=== PATIENT | female | born 1950 | race Caucasian/White ===

== ENCOUNTER 2020-12-12 08:08 | Emergency (ER) | payer OTHER ==
--- OUTSIDE RECORDS SUMMARY | 2020-12-12 08:09 | XMS REPORT | Continuity of Care Document ---
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 Social History Smoking Status Start Date Stop Date Source Never Smoker [place] [facility] Medications Ordered Filled Start Stop Current Ordering Indication Dosage Frequency Signature Comments Components Source Medication Medication Date Date Medication? Clinician (SIG) Name Name azithromyci azithromyci No azithromyc [place] n 250 mg n 250 mg in 250 mg da tablet tablet tablet [facility] citalopram citalopram No citalopram [place] 40 mg 40 mg 40 mg da tablet tablet tablet [facility] clonazepam clonazepam No clonazepam [place] 0.5 mg 0.5 mg 0.5 mg da tablet Take tablet Take tablet [facility] 1 tablet 1 tablet Take 1 al twice a day twice a day tablet Health by oral by oral twice a Outrea c route. route. day by h oral Program route. fluticasone fluticasone No fluticason [place] propionate propionate e da 50 50 propionate [facility] mcg/actuati mcg/actuati 50 a l on nasal on nasal mcg/actuat H ealth spray,suspe spray,suspe ion nasal Outreac nsion nsion spray,susp h ension Program gabapentin gabapentin No gabapentin [place] 100 mg 100 mg 100 mg da capsule capsule capsule [facility] gabapentin gabapentin No gabapentin [place] 300 mg 300 mg 300 mg da capsule capsule capsule [facility] levofloxaci levofloxaci No levofloxac [place] n 500 mg n 500 mg in 500 mg da tablet tablet tablet [facility] lisinopril lisinopril No lisinopril [place] 20 mg 20 mg 20 mg da tablet tablet tablet [facility] lisinopril lisinopril No lisinopril [place] 20 20 20 da mg-hydrochl mg-hydrochl mg-hydroch [facility] orothiazide orothiazide lorothiazi al 12.5 mg 12.5 mg de 12.5 mg Hea lth tablet tablet tablet Outreac h Program lisinopril lisinopril No lisinopril [place] 30 mg 30 mg 30 mg da tablet tablet tablet [facility] mirtazapine mirtazapine No mirtazapin [place] 15 mg 15 mg e 15 mg da tablet TAKE tablet TAKE tablet [facility] 1 TABLET BY 1 TABLET BY TAKE 1 al MOUTH MOUTH TABLET BY [facility] EVERYDAY AT EVERYDAY AT MOUTH Outreac BEDTIME BEDTIME EVERYDAY h AT BEDTIME Program neomycin-po neomycin-po No neomycin-p [place] lymyxin-hyd lymyxin-hyd olymyxin-h da rocort 3.5 rocort 3.5 ydrocort [facility] mg/mL-10,00 mg/mL-10,00 3.5 a l 0 unit/mL-1 0 unit/mL-1 mg/mL-10,0 Health % ear % ear 00 Outreac solution solution unit/mL-1 h % ear Program solution omeprazole omeprazole No omeprazole [place] 40 mg 40 mg 40 mg da capsule,del capsule,del capsule,de [facility] ayed ayed layed al release release release Health Outreac h Program ondansetron ondansetron No ondansetro [place] HCl 4 mg HCl 4 mg n HCl 4 mg d a tablet tablet tablet [facility] oseltamivir oseltamivir No oseltamivi [place] 75 mg 75 mg r 75 mg da capsule capsule capsule [facility] venlafaxine venlafaxine No venlafaxin [place] 100 mg 100 mg e 100 mg da tablet TAKE tablet TAKE tablet [facility] 1 TABLET BY 1 TABLET BY TAKE 1 al MOUTH TWICE MOUTH TWICE TABLET BY Health A DAY WITH A DAY WITH MOUTH Ou treac FOOD FOOD TWICE A h DAY WITH Program FOOD venlafaxine venlafaxine No venlafaxin [place] ER 75 mg ER 75 mg e ER 75 mg d a capsule,ext capsule,ext capsule,ex [facility] ended ended tended al release 24 release 24 release 24 Health hr hr hr Outreac h Program amoxicillin amoxicillin No amoxicilli [place] [phone] n 875 da mg-potassiu mg-potassiu mg-potassi [facility] m m um al clavulanate clavulanate clavulanat Health 125 mg 125 mg e 125 mg Outreac tablet tablet tablet h Program ampicillin ampicillin No ampicillin [place] 500 mg 500 mg 500 mg da capsule capsule capsule [facility] Procedures This patient has no known procedures. Encounters Start End Encounter Admission Attending Care Care Encounter Source Date/Time Date/Time Type Type Clinicians Facility Department ID 2019-04-30 2019-04-30 [facility] - [id number] [facility] [place] 00:00:00 00:00:00 Jakilo Hart MD: [facility] [address] [facility] [address], Health [facility] Program [id number] , Ph. [phone] Results This patient has no known results.
[2020-12-12] MEDS ORDERED: AMLODIPINE 10 MG TAB ONE ×2 (09:06→12:17)
[2020-12-12] MEDS ORDERED: ASPIRIN EC 81 MG TAB PO ONE (09:06)
[2020-12-12] MEDS ORDERED: METOPROLOL TAR 50 MG TAB ONE (09:21)
[2020-12-12 09:38] LABS: Absolute Lymphocytes (CBC) 1.7 K/uL (0.7-4.9); Basophils % 1.3 % (0-1.3); Hematocrit 38.7 % (36.0-45.0); Lymphocytes % 30.9 % (15.3-44.8); Protime INR 1.04; RBC Red Blood Cell Count 4.51 M/uL (3.86-4.86)
[2020-12-12 10:33] LABS: ALT/SGPT 31 U/L (12-78); AST/SGOT 19 U/L (15-37); Albumin 3.6 g/dL (3.4-5.0); Alkaline Phosphatase 74 U/L (45-117); BUN Blood Urea Nitrogen 16 mg/dL (7-18); Bicarbonate 26 mmol/L (21-32); Bilirubin Direct < 0.1 mg/dL (0-0.2); Bilirubin Total 0.4 mg/dL (0.2-1.0); Glucose Level 99 mg/dL (74-106); Lipase 124 U/L (73-393); Magnesium 2.6 mg/dL (1.8-2.4); NT PRO-BNP 72 pg/mL (<125); Potassium 4.1 mmol/L (3.5-5.1); Protein, Total 7.7 g/dL (6.4-8.2); Sodium Level 143 mmol/L (136-145); Troponin (Emerg Dept Use Only) < 0.02 ng/mL (0.0-0.045)
--- NOTE | 2020-12-12 11:00 | ER ---
Nurse's Notes [facility] Name: Kelsi Ballard Age: 70 yrs Sex: Female : 1950 Arrival Date: 12/12/2020 Time: 08:11 Bed 16 Private MD: Diagnosis: Essential (primary) hypertension;Chest pain, unspecified Presentation: 12/12 08:32 Chief complaint: Patient states: HTN. pt reports that her BP has been elevated the last tr6 2 weeks. pt reports headache in the back of her head. Coronavirus screen: Client denies travel out of the [place] in the last 14 days. Ebola Screen: Patient negative for fever greater than or equal to 101.5 degrees Fahrenheit, and additional compatible Ebola Virus Disease symptoms Patient denies exposure to infectious person. Patient denies travel to an Ebola-affected area in the 21 days before illness onset. Initial Sepsis Screen: Does the patient meet any 2 criteria? No. Patient's initial sepsis screen is negative. Does the patient have a suspected source of infection? No. Patient's initial sepsis screen is negative. Risk Assessment: Do you want to hurt yourself or someone else? Patient reports no desire to harm self or others. Onset of symptoms was November 28, 2020. 08:32 Method Of Arrival: Ambulatory tr6 08:32 Acuity: YARA 3 tr6 Triage Assessment: 08:34 General: Appears in no apparent distress. Behavior is calm, cooperative, appropriate tr6 for age. Pain: Complains of pain in c/o dull headache on back of her head. pt reports that she usually has a headache. Historical: - Allergies: 08:34 Hydrocodone-Acetaminophen; tr6 08:34 tramadol; tr6 - Home Meds: 08:34 lisinopril Oral once daily [Active]; aspirin 81 mg Oral chew once daily [Active]; tr6 - Immunization history:: Adult Immunizations up to date. - Social history:: Smoking status: unknown. - Family history:: not pertinent. Screenin:34 Abuse screen: Denies threats or abuse. Denies injuries from another. Nutritional tr6 screening: No deficits noted. Tuberculosis screening: No symptoms or risk factors identified. Fall Risk None identified. Assessment: 11:21 Reassessment: see triage assessment. tr6 12:00 Reassessment: No changes from previously documented assessment. pt educated on new tr6 medication. pt friend at bedside. pt updated on POC and verbalized understanding. 12:25 Reassessment: OOB to bathroom. tr6 Vital Signs: 08:31 BP 166 / 101; Pulse 82; Resp 18; Pulse Ox 100% ; tr6 08:39 BP 166 / 96; Pulse 91; Resp 18; Pulse Ox 95% ; tr6 11:21 BP 179 / 90; Pulse 64; Resp 18; Pulse Ox 100% ; tr6 12:56 BP 160 / 103; Pulse 82; Resp 18; Pulse Ox 100% ; tr6 ED Course: 08:11 Patient arrived in ED. mr 08:17 Ganesh Bill MD is Attending Physician. claudine 08:33 Triage completed. tr6 08:35 Arm band placed on right wrist. tr6 08:35 Patient has correct armband on for positive identification. Bed in low position. Call tr6 light in reach. Side rails up X 1. 08:35 No provider procedures requiring assistance completed. tr6 10:07 XRAY Chest (1 view) In Process Unspecified. EDMS 10:59 Jean-Claude Lucas MD is Referral Physician. claudine 11:55 Troponin (emerg Dept Use Only): 1130 am Sent. tr6 12:58 IV discontinued, intact, bleeding controlled, No redness/swelling at site. Pressure tr6 dressing applied. Administered Medications: 08:58 Not Given (Duplicate Order): Norvasc (amlodipine) 10 mg PO once claudine 09:12 Drug: Aspirin 162 mg Route: PO; tr6 11:55 Follow up: Response: No adverse reaction tr6 09:12 Drug: Lopressor (metoprolol TARTRATE) 50 mg Route: PO; tr6 11:54 Follow up: Response: No adverse reaction tr6 12:00 Drug: Norvasc (amlodipine) 10 mg Route: PO; tr6 12:25 Follow up: Response: No adverse reaction tr6 12:41 CANCELLED (Duplicate Order): Ativan (LORazepam) 1 mg PO once claudine 12:53 Drug: Ativan (LORazepam) 1 mg Route: IVP; Site: right antecubital; tr6 12:57 Follow up: Response: No adverse reaction; Anxiety decreased tr6 Outcome: 10:59 Discharge ordered by . claudine 12:57 Discharged to home ambulatory, with friend. tr6 12:57 Condition: good 12:57 Discharge instructions given to patient. 13:28 Patient left the ED. tr6 Signatures: Dispatcher [employer] Ganesh Lucio MD MD cha Rivera, Mary mr Ramnanan, Tiffany, RN RN tr6
--- NOTE | 2020-12-12 11:00 | EDPHYS ---
Physician Documentation [facility] Name: Kelsi Ballard Age: 70 yrs Sex: Female : 1950 Arrival Date: 12/12/2020 Time: 08:11 Bed 16 Private MD: JENNIFER Physician Ganesh Bill HPI: 12/12 09:06 This 70 yrs old Female presents to ER via Ambulatory with complaints of High claudine Blood Pressure. 09:06 The patient has elevated blood pressure and discovered this at home. Onset: The claudine symptoms/episode began/occurred 14 day(s) ago. Modifying factors: The symptoms are aggravated by activity, The symptoms are alleviated by remaining still. Associated signs and symptoms: Pertinent positives: chest pain, headache. Severity of symptoms: At its worst the blood pressure was moderate, in the emergency department the blood pressure is improved, mildly. The patient has experienced similar episodes in the past, multiple times. Historical: - Allergies: 08:34 Hydrocodone-Acetaminophen; tr6 08:34 tramadol; tr6 - Home Meds: 08:34 lisinopril Oral once daily [Active]; aspirin 81 mg Oral chew once daily [Active]; tr6 - Immunization history:: Adult Immunizations up to date. - Social history:: Smoking status: unknown. - Family history:: not pertinent. ROS: 09:06 Constitutional: Negative for fever, chills, and weight loss, Eyes: Negative for injury, claudine pain, redness, and discharge, ENT: Negative for injury, pain, and discharge, Neck: Negative for injury, pain, and swelling, Respiratory: Negative for shortness of breath, cough, wheezing, and pleuritic chest pain, Abdomen/GI: Negative for abdominal pain, nausea, vomiting, diarrhea, and constipation, Back: Negative for injury and pain, : Negative for injury, bleeding, discharge, and swelling, MS/Extremity: Negative for injury and deformity, Skin: Negative for injury, rash, and discoloration, Psych: Negative for depression, anxiety, suicide ideation, homicidal ideation, and hallucinations, Allergy/Immunology: Negative for hives, rash, and allergies, Endocrine: Negative for neck swelling, polydipsia, polyuria, polyphagia, and marked weight changes, Hematologic/Lymphatic: Negative for swollen nodes, abnormal bleeding, and unusual bruising. 09:06 Cardiovascular: Positive for chest pain. 09: Respiratory: Negative for cough, shortness of breath. 09: MS/extremity: Negative for acute changes. Exam: : Constitutional: This is a well developed, well nourished patient who is awake, alert, claudine and in no acute distress. Head/Face: Normocephalic, atraumatic. Eyes: Pupils equal round and reactive to light, extra-ocular motions intact. Lids and lashes normal. Conjunctiva and sclera are non-icteric and not injected. Cornea within normal limits. Periorbital areas with no swelling, redness, or edema. ENT: Nares patent. No nasal discharge, no septal abnormalities noted. Tympanic membranes are normal and external auditory canals are clear. Oropharynx with no redness, swelling, or masses, exudates, or evidence of obstruction, uvula midline. Mucous membranes moist. Neck: Trachea midline, no thyromegaly or masses palpated, and no cervical lymphadenopathy. Supple, full range of motion without nuchal rigidity, or vertebral point tenderness. No Meningismus. Chest/axilla: Normal chest wall appearance and motion. Nontender with no deformity. No lesions are appreciated. Cardiovascular: Regular rate and rhythm with a normal S1 and S2. No gallops, murmurs, or rubs. Normal PMI, no JVD. No pulse deficits. Respiratory: Lungs have equal breath sounds bilaterally, clear to auscultation and percussion. No rales, rhonchi or wheezes noted. No increased work of breathing, no retractions or nasal flaring. Abdomen/GI: Soft, non-tender, with normal bowel sounds. No distension or tympany. No guarding or rebound. No evidence of tenderness throughout. Back: No spinal tenderness. No costovertebral tenderness. Full range of motion. Female : Normal external genitalia. Skin: Warm, dry with normal turgor. Normal color with no rashes, no lesions, and no evidence of cellulitis. MS/ Extremity: Pulses equal, no cyanosis. Neurovascular intact. Full, normal range of motion. Neuro: Awake and alert, GCS 15, oriented to person, place, time, and situation. Cranial nerves II-XII grossly intact. Motor strength 5/5 in all extremities. Sensory grossly intact. Cerebellar exam normal. Normal gait. Psych: Awake, alert, with orientation to person, place and time. Behavior, mood, and affect are within normal limits. 09:08 ECG was reviewed by the Attending Physician. [facility] Vital Signs: 08:31 BP 166 / 101; Pulse 82; Resp 18; Pulse Ox 100% ; tr6 08:39 BP 166 / 96; Pulse 91; Resp 18; Pulse Ox 95% ; tr6 11:21 BP 179 / 90; Pulse 64; Resp 18; Pulse Ox 100% ; tr6 12:56 BP 160 / 103; Pulse 82; Resp 18; Pulse Ox 100% ; tr6 MDM: 08:17 Patient medically screened. [facility] 09:09 Differential diagnosis: hypertensive crisis. Data reviewed: vital signs, nurses notes, [facility] lab test result(s), EKG, radiologic studies. Data interpreted: prescription clerk: rate is 91 beats/min, rhythm is regular, Pulse oximetry: on room air is 95 %. Test interpretation: by ED physician or midlevel provider: ECG, plain radiologic studies. Counseling: I had a detailed discussion with the patient and/or guardian regarding: the historical points, exam findings, and any diagnostic results supporting the discharge/admit diagnosis, lab results, radiology results, the need for outpatient follow up, for definitive care, a prescription eyeglass maker. 12/12 08:43 Order name: Basic Metabolic Panel [facility] 12/12 08:43 Order name: CBC with Diff [facility] 12/12 08:43 Order name: LFT's; Complete Time: 10:55 [facility] 12/12 08:43 Order name: Magnesium; Complete Time: 10:55 [facility] 12/12 08:43 Order name: NT PRO-BNP; Complete Time: 10:55 [facility] 12/12 08:43 Order name: PT-INR; Complete Time: 10:03 [facility] 12/12 08:43 Order name: Troponin (emerg Dept Use Only); Complete Time: 10:55 [facility] 12/12 08:43 Order name: XRAY Chest (1 view); Complete Time: 11:25 [facility] 12/12 08:43 Order name: Lipase; Complete Time: 10:55 [facility] 12/12 08:43 Order name: Basic Metabolic Panel; Complete Time: 10:55 [facility] 12/12 08:43 Order name: CBC with Automated Diff; Complete Time: 10:03 [facility] 12/12 10:57 Order name: Troponin (emerg Dept Use Only): 1130 am [facility] 12/12 10:57 Order name: Troponin (Emerg Dept Use Only); Complete Time: 12:40 [facility] 12/12 08:43 Order name: EKG; Complete Time: 08:44 [facility] 12/12 08:43 Order name: Cardiac monitoring; Complete Time: 09:11 [facility] 12/12 08:43 Order name: EKG - Nurse/Tech; Complete Time: 09:11 [facility] 12/12 08:43 Order name: IV Saline Lock; Complete Time: 09: [facility] 12/12 08:43 Order name: Labs collected and sent; Complete Time: 09: [facility] 12/12 08:43 Order name: O2 Per Protocol; Complete Time: 09: [facility] 12/12 08:43 Order name: O2 Sat Monitoring; Complete Time: :11 [facility] EC:08 Rate is 82 beats/min. Rhythm is regular. QRS [place] is Normal. [place] interval is normal. QRS claudine interval is normal. QT interval is normal. No Q waves. T waves are Normal. No ST changes noted. Clinical impression: NSR w/ Non-specific ST/T Changes and No evidence of ischemia. Interpreted by me. Reviewed by me. Administered Medications: 08:58 Not Given (Duplicate Order): Norvasc (amlodipine) 10 mg PO once [facility] 09:12 Drug: Aspirin 162 mg Route: PO; tr6 11:55 Follow up: Response: No adverse reaction tr6 09:12 Drug: Lopressor (metoprolol TARTRATE) 50 mg Route: PO; tr6 11:54 Follow up: Response: No adverse reaction tr6 12:00 Drug: Norvasc (amlodipine) 10 mg Route: PO; tr6 12:25 Follow up: Response: No adverse reaction tr6 12:41 CANCELLED (Duplicate Order): Ativan (LORazepam) 1 mg PO once [facility] 12:53 Drug: Ativan (LORazepam) 1 mg Route: IVP; Site: right antecubital; tr6 12:57 Follow up: Response: No adverse reaction; Anxiety decreased tr6 Disposition: 12/12/20 10:59 Discharged to Home. Impression: Essential (primary) hypertension, Chest pain, unspecified. - Condition is Stable. - Discharge Instructions: Hypertension, Hypertension, [id number], Aspirin and Your Heart, Managing Your Hypertension. - Prescriptions for Lisinopril 20 mg Oral Tablet - take 1 tablet by ORAL route every 12 hours; 30 tablet. Norvasc 5 mg Oral Tablet - take 1 tablet by ORAL route once daily; 20 tablet. Toprol XL 25 mg Oral Tablet - take 1 tablet by ORAL route once daily; 20 tablet. - Medication Reconciliation Form, Thank You Letter, Antibiotic Education, Prescription Opioid Use, Work release form, Family Work Release form. - Follow up: Private Physician; When: 2 - 3 days; Reason: Recheck today's complaints, Continuance of care, Re-evaluation by your physician. Follow up: Jean-Claude Lucas; When: 2 - 3 days; Reason: Recheck today's complaints, Continuance of care, Re-evaluation by your physician. - Problem is new. - Symptoms have improved. Signatures: Dispatcher [employer] EDGanesh Lindquist MD MD cha Ramnanan, Tiffany RN RN tr6 Corrections: (The following items were deleted from the chart) 12:41 12:41 Ativan (LORazepam) 1 mg PO once ordered. claudine chow 13:28 10:59 12/12/2020 10:59 Discharged to Home. Impression: Essential (primary) tr6 hypertension; Chest pain, unspecified. Condition is Stable. Discharge Instructions: Hypertension, Hypertension, [id number], Aspirin and Your Heart, Managing Your Hypertension. Prescriptions for Toprol XL 50 mg Oral Tablet - take 1 tablet by ORAL route once daily; 20 tablet, Lisinopril 20 mg Oral Tablet - take 1 tablet by ORAL route every 12 hours; 30 tablet. and Forms are Medication Reconciliation Form, Thank You Letter, Antibiotic Education, Prescription Opioid Use. Follow up: Private Physician; When: 2 - 3 days; Reason: Recheck today's complaints, Continuance of care, Re-evaluation by your physician. Follow up: Jean-Claude Lucas; When: 2 - 3 days; Reason: Recheck today's complaints, Continuance of care, Re-evaluation by your physician. Problem is new. Symptoms have improved. claudine
--- NOTE | 2020-12-12 11:09 | RAD REPORT ---
EXAM DESCRIPTION: Eran Single View12/12/2020 10:06 am CLINICAL HISTORY: Chest pain COMPARISON: 2016 FINDINGS: The lungs appear clear of acute infiltrate. The heart is mildly enlarged. Old left rib fr acture IMPRESSION: No acute abnormalities displayed
[2020-12-12] MEDS ORDERED: LORazepam 2 MG/ML VIAL ONE (13:04)
[2020-12-12 13:35] VITALS: O2SAT 100
[2020-12-12 13:36] VITALS: BP 160/103
--- NOTE | 2020-12-13 10:39 | EKG ---
Test Date: 2020-12-12 Test Time: 08:57:54 Marketing Communications Leader: JESSICA MEASUREMENT RESULTS: Intervals: Rate: 82 AL: 138 QRSD: 76 QT: 398 QTc: 464 [place]: P: 50 AL: 138 QRS: -4 T: 31 INTERPRETIVE STATEMENTS: Normal sinus rhythm Inferior infarct, age undetermined Abnormal ECG Compared to ECG 12/19/2016 11:53:21 T-wave abnormality no longer present Possible ischemia no longer present Myocardial infarct finding still present Electronically Signed On 12-13-20 10:36:52 CDT by Jean-Claude Lucas
== END 2020-12-12 13:28 | disposition home or self-care (01) ==
LOC: ER 08:08
DX: I10 Essential (primary) hypertension (principal); Z79.82 Long term (current) use of aspirin; Z88.5 Allergy status to narcotic agent; Z88.6 Allergy status to analgesic agent
CPT/HCPCS: 36415; 71045; 80048; 80076; 83690; 83735; 83880; 84484; 85025; 85610; 93005; 96374; 99284

== ENCOUNTER 2022-01-24 14:08 | Observation (INO) | payer OTHER ==
--- OUTSIDE RECORDS SUMMARY | 2022-01-24 14:10 | XMS REPORT | Continuity of Care Document ---
:1950 Author Organization [facility] t Address [address] [place] [address] Care Team Providers Name Role Phone JOHN Attending Clinician Unavailable JOHN Admitting Clinician Unavailable Payers Payer Name Policy Type Policy Number Effective Date Expiration Date Jasper DAIGLE (MEDICARE [id number] REPLACEMENT/ADVANTAGE - PPO) Problems Condition Condition Condition Status Onset Resolution [...] Start Date Stop Date Source Never Smoker [facility] Outreach Program Medications Ordered Filled Start Stop Current Ordering Indication Dosage Frequency Signature Comments Components Source Medication Medication Date Date Medication? Clinician (SIG) Name Name amoxicillin amoxicillin No amoxicilli [place] [phone] [id number] 875 da mg-potassiu mg-potassiu mg-potassi [facility] al clavulanate clavulanate clavulanat Health 125 mg 125 mg e 125 mg Outreac tablet tablet tablet h Program ampicillin ampicillin No ampicillin [place] 500 mg 500 mg 500 mg da capsule capsule capsule [facility] azithromyci azithromyci No azithromyc [place] n 250 mg n 250 mg in 250 mg da tablet tablet tablet [facility] citalopram citalopram No citalopram [place] 40 mg 40 mg 40 mg da tablet tablet tablet [facility] Outreac h Program clonazepam clonazepam No clonazepam [...] mg da capsule capsule capsule [facility] Outreac h Program gabapentin gabapentin No gabapentin [place] 300 mg 300 mg 300 mg da capsule capsule capsule [facility] Outreac h Program levofloxaci levofloxaci No levofloxac [place] n 500 mg n 500 mg in 500 mg da tablet tablet tablet [facility] Outreac h Program lisinopril lisinopril No lisinopril [place] 20 mg 20 mg 20 mg da tablet tablet tablet [facility] Outreac h Program lisinopril lisinopril No lisinopril [place] 20 20 20 da mg-hydrochl mg-hydrochl mg-hydroch [facility] orothiazide orothiazide lorothiazi al 12.5 mg 12.5 mg de 12.5 mg Hea lth tablet tablet tablet Outreac h Program lisinopril lisinopril No lisinopril [place] 30 mg 30 mg 30 mg da tablet tablet tablet [facility] Outreac h Program mirtazapine mirtazapine No mirtazapin [place] 15 mg 15 mg e 15 mg da tablet TAKE tablet TAKE tablet [facility] 1 TABLET BY 1 TABLET BY TAKE 1 al MOUTH MOUTH TABLET BY [facility] EVERYDAY AT EVERYDAY AT MOUTH [facility] BEDTIME [...] Health hr hr hr Outreac h Program Procedures This patient has no known procedures. Encounters Start End Encounter Admission Attending Care Care Encounter Source Date/Time Date/Time Type Type Clinicians Facility Department ID 2021-11-26 2021-11-26 Out[place] [id number] [place] 10:48:00 10:48:00 _[facility]UAN 0421 [facility] 2019-12-12 2019-12-12 Outpatient [place] [id number] [place] 12:49:00 12:49:00 _JO[facility]UAN [id number] [facility] 2019-11-07 2019-11-07 Outpatient [place] [id number] [place] 01:17:00 01:17:00 _[facility]UAN [facility]01 [facility] 2019-10-03 2019-10-03 Outpatient [facility] 803 [place] 06:08:00 06:08:00 _JOSE JUAN [facility] 2019-04-30 2019-04-30 Amol [facility] [place] - [id number] M [place] 00:00:00 00:00:00 Remy Hart MD: [facility] [address] [facility] [address], [address], [facility] [id number] , Ph. [phone] Results This patient has no known results.
[2022-01-24] MEDS ORDERED: MORPHINE 4 MG/ML SYR ONE (14:24)
[2022-01-24] MEDS ORDERED: ONDANSETRON 4 MG/2 ML VIAL ONE ×2 (14:25→18:39)
--- NOTE | 2022-01-24 14:53 | RAD REPORT ---
EXAM DESCRIPTION: RAD - Humerus Right - 01/24/2022 2:40 pm CLINICAL HISTORY: PAIN COMPARISON: No comparisons FINDINGS/IMPRESSION: Displaced multipart fracture of the right proximal humerus. No dislocation. The remainder of the humerus and elbow are grossly unremarkable.
--- NOTE | 2022-01-24 14:53 | RAD REPORT ---
EXAM DESCRIPTION: RAD - Shoulder Right 2 View - 01/24/2022 2:40 pm CLINICAL HISTORY: PAIN COMPARISON: No comparisons FINDINGS/IMPRESSION: Multipart fracture of the right proximal humerus involving greater tuberosity, surgical neck, and likely the lesser tuberosity. No dislocation.
[2022-01-24] MEDS ORDERED: HYDROMORPHONE HCL 1 MG/ML INJ ONE ×3 (15:10→18:39)
--- NOTE | 2022-01-24 18:16 | EDPHYS ---
Physician Documentation [facility] Name: Kelsi Ballard Age: 71 yrs Sex: Female : 1950 Arrival Date: 01/24/2022 Time: 14:10 Bed 2 Private MD: ED Physician Conner Schwartz HPI: 01/24 15:04 This 71 yrs old Female presents to ER via EMS with complaints of Shoulder Pain, Arm ma2 Injury - patient was walking when she tripped fell onto the left shoulder/arm and now having pain in the r arm worse in the mid shaft region.. 15:04 Onset: The symptoms/episode began/occurred suddenly, 1 hour(s) ago. Associated signs ma2 and symptoms: Pertinent negatives: diaphoresis. Severity of symptoms: At their worst the symptoms were moderate, in the emergency department the symptoms are unchanged. And tripped and fell onto her right shoulder sustained pain in right upper arm, pain is sudden severe, weakness in the hand or changes sensation,. Historical: - Allergies: 14:14 Hydrocodone-Acetaminophen; jg9 14:14 tramadol; jg9 - Home Meds: 15:11 aspirin 81 mg Oral chew once daily [Active]; citalopram 40 mg tab 1 tab once daily jg9 [Active]; clonazepam 0.5 mg Oral TbDL 1 tab 2 times per day [Active]; gabapentin 300 mg Oral cap daily [Active]; lisinopril Oral once daily [Active]; Prozac Oral [Active]; venlafaxine Oral [Active]; - PMHx: 14:14 Anxiety; Chronic pain; Hypertension; jg9 - Immunization history:: Adult Immunizations not up to date. - Social history:: Smoking status: Patient denies any tobacco usage or history of. - Family history:: not pertinent. ROS: 15:04 Constitutional: Negative for fever, chills, and weight loss. ma2 15:04 All other systems are negative. Exam: 15:04 Constitutional: This is a well developed, well nourished patient who is awake, alert, ma2 and in no acute distress. Head/Face: Normocephalic, atraumatic. Eyes: Pupils equal round and reactive to light, extra-ocular motions intact. Lids and lashes normal. Conjunctiva and sclera are non-icteric and not injected. Cornea within normal limits. Periorbital areas with no swelling, redness, or edema. ENT: Nares patent. No nasal discharge, no septal abnormalities noted. Tympanic membranes are normal and external auditory canals are clear. Oropharynx with no redness, swelling, or masses, exudates, or evidence of obstruction, uvula midline. Mucous membranes moist. Neck: Trachea midline, no thyromegaly or masses palpated, and no cervical lymphadenopathy. Supple, full range of motion without nuchal rigidity, or vertebral point tenderness. No Meningismus. Chest/axilla: Normal chest wall appearance and motion. Nontender with no deformity. No lesions are appreciated. Cardiovascular: Regular rate and rhythm with a normal S1 and S2. No gallops, murmurs, or rubs. Normal PMI, no JVD. No pulse deficits. Respiratory: Lungs have equal breath sounds bilaterally, clear to auscultation and percussion. No rales, rhonchi or wheezes noted. No increased work of breathing, no retractions or nasal flaring. Abdomen/GI: Soft, non-tender, with normal bowel sounds. No distension or tympany. No guarding or rebound. No evidence of tenderness throughout. Skin: Warm, dry with normal turgor. Normal color with no rashes, no lesions, and no evidence of cellulitis. MS/ Extremity: Numbness to palpation in the right upper arm, skin is closed no laceration or abrasion or puncture wound, cap refill is brisk and pulses intact radial and ulnar, right upper extremity is well vascularized with peripheral sensation is intact and equal, pulses equal, no cyanosis. Neurovascular intact. Full, normal range of motion. Neuro: Awake and alert, GCS 15, oriented to person, place, time, and situation. Cranial nerves II-XII grossly intact. Motor strength 5/5 in all extremities. Sensory grossly intact. Cerebellar exam normal. Normal gait. Vital Signs: 14:12 BP 145 / 88; Pulse 100; Resp 18 S; Temp 97.8(TE); Pulse Ox 98% on R/A; Weight 68.04 kg; jg9 Height 5 ft. 4 in. (162.56 cm) (R); Pain 8/10; 14:15 BP 148 / 101; Pulse 99; Resp 20 S; Pulse Ox 98% on R/A; jg9 15:00 BP 146 / 84; Pulse 92; Resp 16 S; Pulse Ox 98% ; Pain 10/10; jg9 16:30 BP 129 / 80; Pulse 100; Resp 18 S; Pulse Ox 94% on R/A; Pain 5/10; jg9 19:13 BP 147 / 83; Pulse 98; Resp 18 S; Pulse Ox 96% on 2 lpm NC; as6 19:29 Pulse Ox 98% 2 lpm ; kd3 14:12 Body Mass Index 25.75 (68.04 kg, 162.56 cm) jg9 MDM: 14:11 Patient medically screened. ma2 15:04 Differential diagnosis: humeral head fracture, glenoid fracture, DJD, tendonitis. Data ma2 reviewed: vital signs, nurses notes. Counseling: I had a detailed discussion with the patient and/or guardian regarding: the historical points, exam findings, and any diagnostic results supporting the discharge/admit diagnosis, the presence of at least one elevated blood pressure reading (>120/80) during this emergency department visit, the need for outpatient follow up. Response to treatment: the patient's symptoms have mildly improved after treatment. 16:36 ED course: Patient has multi part displaced proximal humerus fracture, closed ma2 neurovascular intact, we put the patient on sling give her morphine Zofran, pain still persist, we gave Dilaudid.. ED course: Discussed with Dr. Mauricio orthopedic, shared all images, after he reviewed all the images he advised that this is definitely nonsurgical however patient still unable to move due to pain after 2 rounds of narcotics, will admit to hospitalist with orthopedic consult further management.. 18:13 ED course: discussed with sol rosenberg . ma2 01/24 16:33 Order name: COVID-19 SARS RT PCR (Document "Date of Onset" if Symptomatic); Complete ss Time: 18:12 01/24 14:12 Order name: Shoulder Right (2 View) XRAY; Complete Time: 14:55 ma2 01/24 14:12 Order name: Humerus Right XRAY; Complete Time: 14:55 pr2 01/24 15:06 Order name: Sling; Complete Time: 15:13 ma2 Administered Medications: 14:27 Drug: morphine 4 mg Route: IVP; Infused Over: 4 mins; Site: left antecubital; jg9 15:07 Follow up: Response: No adverse reaction; Pain is unchanged, physician notified jg9 19:29 Follow up: Response: No adverse reaction; Pain is decreased kd3 14:27 Drug: Zofran (Ondansetron) 4 mg Route: IVP; Site: left antecubital; jg9 15:07 Follow up: Response: No adverse reaction jg9 19:29 Follow up: Response: No adverse reaction kd3 15:10 Drug: Dilaudid (HYDROmorphone) 1 mg Route: IVP; Site: left antecubital; jg9 16:34 Follow up: Response: No adverse reaction hernandez 19:29 Follow up: Response: No adverse reaction; Pain is decreased kd3 16:34 Drug: Dilaudid (HYDROmorphone) 1 mg Route: IVP; Site: left antecubital; hernandez 16:34 Follow up: Response: No adverse reaction hernandez 19:29 Follow up: Response: No adverse reaction; Pain is decreased kd3 18:36 Drug: Dilaudid (HYDROmorphone) 1 mg Route: IVP; Site: left antecubital; jg9 19:29 Follow up: Response: No adverse reaction; Pain is decreased kd3 18:36 Drug: Zofran (Ondansetron) 4 mg Route: IVP; Site: left antecubital; jg9 19:30 Follow up: Response: No adverse reaction; Pain is decreased kd3 Disposition Summary: 01/24/22 18:15 Hospitalization Ordered Hospitalization Status: Observation ma2 Provider: Luis Perez Condition: Stable ma2 Problem: new ma2 Symptoms: are unchanged ma2 Bed/Room Type: Standard [facility] Location: [facility](01/24/22 18:54) Room Assignment: [facility]-(01/24/22 18:54) Diagnosis - 2-part nondisplaced fracture of surgical neck of right humerus ma2 Discharge Instructions: - Discharge Summary Sheet ma2 - Humerus Fracture Treated With Immobilization, [id number] ma2 Forms: - Medication Reconciliation Form ma2 - SBAR form ma2 Prescriptions: - Diclofenac Sodium 75 mg Oral Tablet Sustained Release - take 1 tablet by ORAL route 2 times per day; 30 tablet; Refills: 0, Product ma2 Selection Permitted - Tylenol-Codeine #3 300 mg-30 mg Oral - take 1 tablet by ORAL route 2-4 times daily; 20 tablet; Refills: 0, Product ma2 Selection Permitted Signatures: Dispatcher [employer] Leila Zamora RN RN Conner Schwartz MD MD ma2 Jessica Aguila RN RN jg9 Sandra Nunez RN RN ha Doucette, Kyli RN kd3 Corrections: (The following items were deleted from the chart) 18:54 18:15 Telemetry/MedSurg (observation) pr2 18:54 18:15 ma2
--- NOTE | 2022-01-24 18:16 | ER ---
Nurse's Notes [facility] Name: Kelsi Ballard Age: 71 yrs Sex: Female : 1950 Arrival Date: 01/24/2022 Time: 14:10 Bed 2 Private MD: Diagnosis: 2-part nondisplaced fracture of surgical neck of right humerus Presentation: 01/24 14:12 Chief complaint: EMS states: Patient was walking into the garage when she tripped and jg9 fell landing on her left arm, patient had to be medicated with 37 mg of ketamine just to get patient on cart and arm in sling. Coronavirus screen: Vaccine status: Patient reports being unvaccinated. Ebola Screen: Patient negative for fever greater than or equal to 101.5 degrees Fahrenheit, and additional compatible Ebola Virus Disease symptoms Patient denies exposure to infectious person. Patient denies travel to an Ebola-affected area in the 21 days before illness onset. Initial Sepsis Screen: Does the patient meet any 2 criteria? No. Patient's initial sepsis screen is negative. Does the patient have a suspected source of infection? No. Patient's initial sepsis screen is negative. Risk Assessment: Do you want to hurt yourself or someone else? Patient reports no desire to harm self or others. Onset of symptoms was January 24, 2022. 14:12 Method Of Arrival: EMS: [facility] j9 14:12 Acuity: YARA 3 jg9 Triage Assessment: 14:00 General: Appears uncomfortable, Behavior is anxious. Pain: Complains of pain in right jg9 arm. Musculoskeletal: Reports pain in right arm. Injury Description: fall, - Loc, - thinners. Historical: - Allergies: 14:14 Hydrocodone-Acetaminophen; jg9 14:14 tramadol; jg9 - Home Meds: 15:11 aspirin 81 mg Oral chew once daily [Active]; citalopram 40 mg tab 1 tab once daily jg9 [Active]; clonazepam 0.5 mg Oral TbDL 1 tab 2 times per day [Active]; gabapentin 300 mg Oral cap daily [Active]; lisinopril Oral once daily [Active]; Prozac Oral [Active]; venlafaxine Oral [Active]; - PMHx: 14:14 Anxiety; Chronic pain; Hypertension; jg9 - Immunization history:: Adult Immunizations not up to date. - Social history:: Smoking status: Patient denies any tobacco usage or history of. - Family history:: not pertinent. Screenin:15 Abuse screen: Denies threats or abuse. Denies injuries from another. Nutritional jg9 screening: No deficits noted. Tuberculosis screening: No symptoms or risk factors identified. Fall Risk Fall in past 12 months (25 points). Assessment: 15:12 Reassessment: Patient and/or family updated on plan of care and expected duration. Pain jg9 level reassessed. Patient states feeling better. Patient states symptoms have improved. Vital Signs: 14:12 BP 145 / 88; Pulse 100; Resp 18 S; Temp 97.8(TE); Pulse Ox 98% on R/A; Weight 68.04 kg; jg9 Height 5 ft. 4 in. (162.56 cm) (R); Pain 8/10; 14:15 BP 148 / 101; Pulse 99; Resp 20 S; Pulse Ox 98% on R/A; jg9 15:00 BP 146 / 84; Pulse 92; Resp 16 S; Pulse Ox 98% ; Pain 10/10; jg9 16:30 BP 129 / 80; Pulse 100; Resp 18 S; Pulse Ox 94% on R/A; Pain 5/10; jg9 19:13 BP 147 / 83; Pulse 98; Resp 18 S; Pulse Ox 96% on 2 lpm NC; as6 19:29 Pulse Ox 98% 2 lpm ; kd3 14:12 Body Mass Index 25.75 (68.04 kg, 162.56 cm) jg9 ED Course: 14:10 Patient arrived in ED. ss 14:11 Conner Schwartz MD is Attending Physician. ma2 14:11 Jessica Aguila, BRIANDA is Primary Nurse. jg9 14:14 Triage completed. jg9 14:16 Arm band placed on left wrist. jg9 14:16 Patient has correct armband on for positive identification. Bed in low position. Call jg9 light in reach. Side rails up X 1. 14:41 Shoulder Right (2 View) XRAY In Process Unspecified. EDMS 14:41 Humerus Right XRAY In Process Unspecified. EDMS 18:15 Luis Perez is Hospitalizing Provider. ma2 19:27 No provider procedures requiring assistance completed. Patient admitted, IV remains in kd3 place. Administered Medications: 14:27 Drug: morphine 4 mg Route: IVP; Infused Over: 4 mins; Site: left antecubital; jg9 15:07 Follow up: Response: No adverse reaction; Pain is unchanged, physician notified j9 19:29 Follow up: Response: No adverse reaction; Pain is decreased kd3 14:27 Drug: Zofran (Ondansetron) 4 mg Route: IVP; Site: left antecubital; jg9 15:07 Follow up: Response: No adverse reaction jg9 19:29 Follow up: Response: No adverse reaction kd3 15:10 Drug: Dilaudid (HYDROmorphone) 1 mg Route: IVP; Site: left antecubital; jg9 16:34 Follow up: Response: No adverse reaction hernandez 19:29 Follow up: Response: No adverse reaction; Pain is decreased kd3 16:34 Drug: Dilaudid (HYDROmorphone) 1 mg Route: IVP; Site: left antecubital; hernandez 16:34 Follow up: Response: No adverse reaction hernandez 19:29 Follow up: Response: No adverse reaction; Pain is decreased kd3 18:36 Drug: Dilaudid (HYDROmorphone) 1 mg Route: IVP; Site: left antecubital; j9 19:29 Follow up: Response: No adverse reaction; Pain is decreased kd3 18:36 Drug: Zofran (Ondansetron) 4 mg Route: IVP; Site: left antecubital; jg9 19:30 Follow up: Response: No adverse reaction; Pain is decreased kd3 Medication: 14:16 VIS not applicable for this client. jg9 Outcome: 18:15 Decision to Hospitalize by Provider. ma2 19:28 Admitted to L \T\ D, accompanied by tech, room 270. kd3 19:28 Condition: stable 19:28 Discharge instructions given to patient, family. 19:31 Patient left the ED. kd3 Signatures: Dispatcher [employer] EDMS Cynthia Johansen RN RN Conner Schwartz MD MD ma2 Avery [place] RN RN as6 Carmela Jason RN RN kd3 Jessica Aguila RN RN jg9 Sandra Nunez RN RN hernandez Corrections: (The following items were deleted from the chart) 16:47 15:00 BP 146 / 84; Pulse 92bpm; Resp 16bpm; Spontaneous; Pulse Ox 98%; jg9 jg9
--- NOTE | 2022-01-24 19:14 | P.HP ---
Certification for Inpatient Patient admitted to: Observation With expected LOS: <2 Midnights Patient will require the following post-hospital care: None Practitioner: I am a practitioner with admitting privileges, knowledge of patient current condition, hospital course, and medical plan of care. Services: Services provided to patient in accordance with Admission requirements found in Title 42 Section 412.3 of the Code of Federal Regulations Patient History Date of Service: 01/24/22 Reason for admission: Humerus Fracture History of Present Illness: Patient is a 71 y/o F with PMH of HTN who presented to the ED via EMS after fall. She reports that she was walking into her garage and tripped and fell onto her L arm. She was in severe pain and EMS had to give fentanyl to get her into sling and onto stretcher. Imaging in the ED showed multipart fracture of the right proximal humerus involving greater tuberosity, surgical neck, and likely the lesser tuberosity. No dislocation.. Ortho was consulted and has deemed the case non surgical. Patient was given several doses of IV pain medications without relief. ED provider wishes to admit patient for observation for pain control and Dr. Mauricio will see patient in the morning. Allergies hydrocodone [Hydrocodone] Allergy (Verified 03/18/12 10:41) Itching tramadol Allergy (Unverified 02/27/16 14:29) Unknown Hydrocodone-Acetaminophen Allergy (Uncoded 01/02/15 13:08) Unknown Home medications list reviewed: Yes - Past Medical/Surgical History Diabetic: No -: Hypertension -: Anxiety -: Oophorectomy -: Rhinoplasty -: Clavicle Repair -: R Great Toe Repair Psychosocial/ Personal History: Patient lives at home with a friend. - Social History Smoking Status: Never smoker Alcohol use: No CD- Drugs: No Caffeine use: Yes Place of Residence: Home Review of Systems Musculoskeletal: Shoulder Pain, Arm Pain Physical Examination - Physical Exam General: Alert, In no apparent distress HEENT: Atraumatic, PERRLA, EOMI, Sclerae nonicteric Neck: Supple, 2+ carotid pulse no bruit, No LAD, Without JVD or thyroid abnormality Respiratory: Clear to auscultation bilaterally, Normal air movement Cardiovascular: Regular rate/rhythm, Normal S1 S2 Gastrointestinal: Normal bowel sounds, No tenderness Musculoskeletal: Other (sling R arm, decreased ROM, pain with movement, neurovascularly intact) Integumentary: No rashes Neurological: Normal speech, Sensation intact, Normal affect Assessment and Plan - Problems (Diagnosis) (1) Humerus fracture Current Visit: Yes Status: Acute Qualifiers: Encounter type: initial encounter Humerus Location: proximal Fracture type: closed Fracture morphology: other fracture Fracture alignment: nondisplaced Laterality: right Qualified Code(s): S42.294A - Other nondisplaced fracture of upper end of right humerus, initial encounter for closed fracture (2) Intractable pain Current Visit: Yes Status: Acute (3) Hypertension Current Visit: Yes Status: Chronic Qualifiers: Hypertension type: primary hypertension Qualified Code(s): I10 - Essential (primary) hypertension - Plan -IV dilaudid PRN pain -Patient neurovascularly intact and in sling. Continue to monitor -Ortho consulted -Continue home antihypertensives. Hydralazine PRN -Lovenox for VTE ppx -Full code Discharge Plan: Home Plan to discharge in: 24 Hours - Advance Directives Does patient have a Living Will: No Does patient have a Durable POA for Healthcare: No - Code Status/Comfort Care Code Status Assessed: Yes (Full) Critical Care: No Time Spent Managing Pts Care (In Minutes): 50
[2022-01-24 20:01] VITALS: O2SAT 98
[2022-01-24] MEDS ORDERED: DOCUSATE NA 100 MG CAP PO PRN (20:02)
[2022-01-24] MEDS ORDERED: ONDANSETRON 4 MG/2 ML VIAL IV PRN (20:02)
[2022-01-24] MEDS ORDERED: ACETAMINOPHEN 500 MG TAB PO PRN (20:02)
[2022-01-25] MEDS: HYDROMORPHONE HCL 1 MG/ML INJ IV PRN ×2 (00:36→06:30)
[2022-01-25] MEDS ORDERED: ENOXAPARIN 40 MG/0.4 ML SQ SCH (09:00)
[2022-01-25] MEDS ORDERED: OXYCODONE HCL 5 MG TAB PO PRN (11:12)
[2022-01-25] MEDS ORDERED: NAPROXEN 250 MG TAB PO PRN (11:16)
[2022-01-25] MEDS: HYDROCODONE/APAP 10/325 TAB PO PRN ×2 (17:47→23:39)
--- NOTE | 2022-01-25 18:51 | P.PN ---
Subjective Date of Service: 01/25/22 Chief Complaint: Humerus Fracture Patient complaining of uncontrolled pain and has not responded to multiple IV opioids. Physical Examination - Vital Signs Temperature: 98.7 F Blood Pressure: 124/69 Pulse: 80 Respirations: 18 Pulse Ox (%): 100 - Physical Exam General: Alert, In no apparent distress, Oriented x3 HEENT: Mucous membr. moist/pink Neck: JVD not distended Respiratory: Clear to auscultation bilaterally, Normal air movement Cardiovascular: No edema, Regular rate/rhythm, Normal S1 S2 Gastrointestinal: Normal bowel sounds, Soft and benign, Non-distended, No tenderness Musculoskeletal: Other (Right upper extremity in a sling) Integumentary: No rashes, No erythema, No cyanosis Neurological: Normal speech, Normal strength at 5/5 x4 extr Assessment And Plan - Current Problems (Diagnosis) (1) Humerus fracture Current Visit: Yes Status: Acute Qualifiers: Encounter type: initial encounter Humerus Location: proximal Fracture type: closed Fracture morphology: other fracture Fracture alignment: nondisplaced Laterality: right Qualified Code(s): S42.294A - Other nondisplaced fracture of upper end of right humerus, initial encounter for closed fracture (2) Intractable pain Current Visit: Yes Status: Acute (3) Hypertension Current Visit: Yes Status: Chronic Qualifiers: Hypertension type: primary hypertension Qualified Code(s): I10 - Essential (primary) hypertension (4) History of depression Current Visit: Yes Status: Acute - Plan Trial of oral [place] for pain control. Right humeral fracture-nonsurgical per Ortho. We will monitor patient overnight for pain control with oral medications and hopefully discharge in a.m. Reconcile and continue other home medications.
[2022-01-26 04:46] LABS: Absolute Lymphocytes (CBC) 2.2 K/uL (0.7-4.9); Hematocrit 35.4 % (36.0-45.0); Lymphocytes % 26.6 % (15.3-44.8); MPV 8.9 fL (7.6-11.3); RBC Red Blood Cell Count 4.18 M/uL (3.86-4.86)
[2022-01-26 05:05] LABS: Potassium 3.6 mmol/L (3.5-5.1)
[2022-01-26] MEDS: HYDROCODONE/APAP 10/325 TAB PO PRN (07:19)
[2022-01-26 07:26] VITALS: BP 112/66; TEMP 96.7
--- NOTE | 2022-01-26 08:18 | P.DS ---
Admission Date: 01/24/22 Discharge Date: 01/26/22 Disposition: ROUTINE DISCHARGE Discharge Condition: GOOD Reason for Admission: Humerus Fracture Consultations: Orthopedic surgery - Dr. Mauricio Brief History of Present Illness: 71 y/o F, PMH: HTN Presented to the ED via EMS after fall. She was walking into her garage and tripped and fell onto her arm. She was in severe pain and EMS had to give fentanyl to get her into sling and onto stretcher. Imaging in the ED showed multipart fracture of the right proximal humerus involving greater tuberosity, surgical neck, and likely the lesser tuberosity. No dislocation. Ortho was consulted and has deemed the case non surgical. Patient was given several doses of IV pain medications without relief. ED provider wishes to admit patient for observation for pain control and Dr. Mauricio will see patient in the morning. Hospital Course: Problem List Right humerus fracture with intractable pain HTN h/o depression Insomnia Found to have multipart fracture of the right proximal humerus. Orthopedic surgery (Dr. Mauricio) was consulted, and recommended nonsurgical management at this time. Patient initially had difficulty obtaining adequate pain control and required IV medication. She was eventually transitioned to oral norco 10s with adequate pain control. She reported feeling better and ready to go home. She has good family support and understands limitations with this fracture. She has follow up with Dr. Clarke scheduled this week. Discharged with pain medication. No other changes to medications on discharge. Recommended to avoid use of pain medication with her Lunesta. Vital Signs/Physical Exam: Temp Pulse Resp BP Pulse Ox 96.7 F L 78 16 112/66 98 01/26/22 07:24 01/26/22 07:24 01/26/22 07:24 01/26/22 07:24 01/26/22 07:24 General: Alert, In no apparent distress, Oriented x3 HEENT: EOMI, Sclerae nonicteric Respiratory: Clear to auscultation bilaterally, Normal air movement Cardiovascular: No edema, Regular rate/rhythm Gastrointestinal: Soft and benign, Non-distended, No tenderness Musculoskeletal: Other (RUE in sling; intact distal sensation) Neurological: Normal speech, Normal affect Laboratory Data at Discharge: WBC 8.2 K/uL (4.3-10.9) 01/26/22 04:29 Hgb 12.1 g/dL (12.0-15.0) 01/26/22 04:29 Hct 35.4 % (36.0-45.0) L 01/26/22 04:29 Plt Count 227 K/uL (152-406) 01/26/22 04:29 Sodium 137 mmol/L (136-145) 01/26/22 04:29 Potassium 3.6 mmol/L (3.5-5.1) 01/26/22 04:29 BUN 15 mg/dL (7-18) 01/26/22 04:29 Creatinine 0.69 mg/dL (0.55-1.3) 01/26/22 04:29 Glucose 112 mg/dL (74-106) H 01/26/22 04:29 Home Medications: Hydrocodone Bit/Acetaminophen [[place] 10-325 Tablet] 1 each PO Q8H 5 Days #15 tablet 01/26/22 New Medications: Hydrocodone Bit/Acetaminophen [[place] 10-325 Tablet] 1 each PO Q8H 5 Days #15 tablet Followup: NONE,NONE [Primary Care Provider] - (Follow up with Dr. Clarke as scheduled 01/27/22) Time spent managing pt's care (in minutes): 35
== END 2022-01-26 11:10 | disposition home or self-care (01) ==
LOC: ER 14:08 → ERHOLD 18:46 → 2ND-WC 19:10
PROVIDERS: ADMIT Internal Medicine; ATTEND Hospitalist
DX: S42.294A Other nondisplaced fracture of upper end of right humerus, initial encounter for closed fracture (principal); W01.0XXA Fall on same level from slipping, tripping and stumbling without subsequent striking against object, initial encounter; Y92.015 Private garage of single-family (private) house as the place of occurrence of the external cause; I10 Essential (primary) hypertension; G47.00 Insomnia, unspecified; F32.A Depression, unspecified; F41.9 Anxiety disorder, unspecified; Z88.5 Allergy status to narcotic agent; Z88.6 Allergy status to analgesic agent; Z90.721 Acquired absence of ovaries, unilateral; Z20.822 Contact with and (suspected) exposure to COVID-19
CPT/HCPCS: 85025; 80048; 36415; 73060; 73030; 96375; 96374; 99285; U0003; J1650; J1170 ×5; J2405 ×3; G0378 ×4

== ENCOUNTER 2022-08-28 08:22 | Emergency (ER) | payer OTHER ==
--- OUTSIDE RECORDS SUMMARY | 2022-08-28 08:25 | XMS REPORT | Continuity of Care Document ---
:1950 Author Organization [facility] t Address [address] [place] [address] Care Team Providers Name Role Phone LATRELL DURANT Attending Clinician Unavailable JOHN Attending Clinician Unavailable JOHN Admitting Clinician Unavailable Payers Payer Name Policy Type Policy Number Effective Date Expiration Date S suleman DAIGLE (MEDICARE [id number] REPLACEMENT/ADVANTAGE - PPO) Problems Condition Condition Condition [...] Outreac h Program Depressive Depressive Problem Active 2018 M [place] disorder Disorder 6-27 da 00:00[facility] Allergies, Adverse Reactions, Alerts This patient has no known allergies or adverse reactions. Social History Smoking Status Start Date Stop Date Source [facility] Medications Ordered Filled Start [...] in 250 mg da tablet tablet tablet [facility] Out[facility] citalopram citalopram No citalopram [place] 40 mg 40 mg 40 mg da tablet tablet tablet [facility] clonazepam clonazepam No clonazepam [...] mg da capsule capsule capsule [facility] gabapentin gabapentin No gabapentin [place] 300 mg 300 mg 300 mg da capsule capsule capsule [facility] Out[facility] levofloxaci levofloxaci No levofloxac [place] n 500 mg n 500 mg in 500 mg da tablet tablet tablet [facility] lisinopril lisinopril No lisinopril [place] 20 mg 20 mg 20 mg da tablet tablet tablet [facility] lisinopril lisinopril No lisinopril [place] 20 20 20 da mg-hydrochl mg-hydrochl mg-hydroch [facility] o[facility]thiazide orothiazide lorothiazi al 12.5 mg 12.5 mg de 12.5 mg Hea lth tablet tablet tablet Outreac h Program lisinopril lisinopril No lisinopril [place] 30 mg 30 mg 30 mg da tablet tablet tablet [facility] mirtazapine mirtazapine No mirtazapin [...] Date/Time Type Type Clinicians Facility Department ID 2022-03-12 Outpatient MIKKI DURANT [facility] [id number] Common 15:47:02 LATRELL [facility] 2022-03-04 Outpatient MIKKI DURANT [facility] [id number] Common 09:03:03 LATRELL [facility] 2021-11-26 2021-11-26 Out[place] [id number] [place] 10:48:00 10:48:00 _JOSE JUAN 0421 da [facility] 2019-12-12 2019-12-12 Outpatient [place] [id number] [place] 12:49:00 12:49:00 _JOSE JUAN [id number] da [facility] 2019-11-07 2019-11-07 Outpatient [facility] [id number] [place] 01:17:00 01:17:00 _JOSE JUAN 0401 [facility] 2019-10-03 2019-10-03 Outpatient [facility] [id number] [place] 06:08:00 06:08:00 _JOSE JUAN 0226 da [facility] 2019-04-30 2019-04-30 [facility] [place] - [id number] [place] 00:00:00 00:00:00 Remy Hart MD: [facility] [address] [facility] [address], [facility] Program [id number] , Ph. [phone] Results This patient has no known results.
--- NOTE | 2022-08-28 09:18 | RAD REPORT ---
EXAM DESCRIPTION: CT - Head Brain Wo Cont - 08/28/2022 9:12 am CLINICAL HISTORY: headache, HTN COMPARISON: none TECHNIQUE: All CT scans are performed using dose optimization technique as appropriate and may inclu de automated exposure control or mA/KV adjustment according to patient size. FINDINGS: No intracranial hemorrhage, hydrocephalus or extra-axial fluid collection.No areas of brai n edema or evidence of midline shift. The paranasal sinuses and mastoids are clear. The calvarium is intact. IMPRESSION: No acute intracranial abnormality.
[2022-08-28 09:19] LABS: Hematocrit 41.2 % (36.0-45.0); Lymphocytes % 34.8 % (15.3-44.8); MCV 87.3 fL (80-100); MPV 8.8 fL (7.6-11.3); RBC Red Blood Cell Count 4.72 M/uL (3.86-4.86)
[2022-08-28 09:22] LABS: Protime INR 0.98
--- NOTE | 2022-08-28 09:39 | RAD REPORT ---
EXAM DESCRIPTION: RAD - Chest Single View - 08/28/2022 9:26 am CLINICAL HISTORY: CHEST PAIN COMPARISON: Chest Single View dated 12/12/2020; Chest Single View dated 06/28/2016; CHEST SINGLE VIEW dated 06/19/2012 FINDINGS: Lines: None. Lungs: No evidence of edema or pneumonia. Pleural: No significant pleural effusions or pneumothorax. Cardiac: The heart size is within normal limits. Mediastinum: Within normal limits. Bones: No acute fractures. Other: None IMPRESSION: No acute cardiopulmonary disease.
[2022-08-28 09:42] LABS: Potassium 4.1 mmol/L (3.5-5.1)
--- NOTE | 2022-08-28 09:57 | ER ---
Nurse's Notes [facility] Name: Kelsi Ballard Age: 72 yrs Sex: Female : 1950 Arrival Date: 08/28/2022 Time: 08:23 Bed 16 Private MD: Diagnosis: Essential (primary) hypertension;Chest pain, unspecified Presentation: 08/28 08:36 Chief complaint: Patient states: High BP, PARIS, described at dull pain across shoulders jl7 described as achy, and left sided CP described as achy. Coronavirus screen: At this time, the client does not indicate any symptoms associated with coronavirus-19. Ebola Screen: No symptoms or risks identified at this time. Initial Sepsis Screen: Does the patient meet any 2 criteria? No. Patient's initial sepsis screen is negative. Does the patient have a suspected source of infection? No. Patient's initial sepsis screen is negative. Risk Assessment: Do you want to hurt yourself or someone else? Patient reports no desire to harm self or others. Onset of symptoms was August 25, 2022. 08:36 Method Of Arrival: Ambulatory [facility] 08:36 Acuity: YARA 3 jl7 Triage Assessment: 08:39 Headache History: The patient has had previous headaches and this one is similar to 7 previous episodes. General: Appears in no apparent distress. uncomfortable, Behavior is calm, cooperative, appropriate for age. Pain: Complains of pain in left trapezius, right trapezius, left scapular area and right scapular area, PARIS, Left CP Pain currently is 5 out of 10 on a pain scale. Quality of pain is described as aching, dull, Pain began 2-3 days ago. Also complains of no other associated symptoms. Neuro: Level of Consciousness is awake, alert, obeys commands, Oriented to person, place, time, situation. Historical: - Allergies: 08:39 Hydrocodone-Acetaminophen; jl7 08:39 tramadol; jl7 - Home Meds: 08:39 aspirin 81 mg Oral chew once daily [Active]; venlafaxine Oral [Active]; lisinopril Oral jl7 once daily [Active]; Metoprolol [Active]; amlodipine oral [Active]; - PMHx: 08:39 Anxiety; Chronic pain; Hypertension; Depressive disorder; jl7 - Immunization history:: Client reports having NOT received the Covid vaccine. - Social history:: Smoking status: Patient denies any tobacco usage or history of. - Family history:: not pertinent. - Hospitalizations: : No recent hospitalization is reported. Screenin:56 [facility] ED Fall Risk Assessment (Adult) History of falling in the last 3 months, kc6 including since admission No falls in past 3 months (0 pts) Confusion or Disorientation No (0 pts) Intoxicated or Sedated No (0 pts) Impaired Gait No (0 pts) Mobility Assist Device Used No (0 pt) Altered Elimination No (0 pt) Score/Fall Risk Level 0 - 2 = Low Risk Oriented to surroundings, Maintained a safe environment, Educated pt \T\ family on fall prevention, incl call for assistance when getting out of bed, Assessed \T\ reinforced patient's understanding of fall precautions, Hourly rounding (assess needs \T\ fall precautionary measures) done. Abuse screen: Denies threats or abuse. Denies injuries from another. Nutritional screening: No deficits noted. Tuberculosis screening: No symptoms or risk factors identified. Assessment: 08:54 General: Appears in no apparent distress. comfortable, Behavior is calm, cooperative, kc6 appropriate for age. Pain: Complains of pain in head Pain does not radiate. Pain currently is 4 out of 10 on a pain scale. Quality of pain is described as dull, Pain began gradually, Is continuous, Alleviated by nothing. Also complains of no other associated symptoms. Neuro: Bernard Agitation-Sedation Scale (RASS): 0 - Alert and Calm Level of Consciousness is awake, alert, obeys commands, Oriented to person, place, time, situation, Appropriate for age. Cardiovascular: Heart tones S1 S2 present Capillary refill < 3 seconds. Respiratory: Airway is patent Trachea midline Respiratory effort is even, unlabored, Respiratory pattern is regular, symmetrical, Breath sounds are clear bilaterally. GI: Reports nausea. : No signs and/or symptoms were reported regarding the genitourinary system. EENT: No signs and/or symptoms were reported regarding the EENT system. Derm: No signs and/or symptoms reported regarding the dermatologic system. Skin is intact, Skin is pink, warm \T\ dry. Musculoskeletal: No signs and/or symptoms reported regarding the musculoskeletal system. Circulation, motion, and sensation intact. Capillary refill < 3 seconds, Range of motion: intact in all extremities. Vital Signs: 08:36 BP 149 / 87; Pulse 91; Resp 17 S; Temp 98.4(TE); Pulse Ox 96% on R/A; Weight 71.21 kg jl7 (R); Height 5 ft. 5 in. (165.10 cm) (R); Pain 5/10; 10:15 BP 146 / 85; Pulse 89; Resp 15; Pulse Ox 95% ; kc6 08:36 Body Mass Index 26.13 (71.21 kg, 165.10 cm) jl7 ED Course: 08:23 Patient arrived in ED. am2 08:25 Roman Yanez MD is Attending Physician. rn 08:25 Henrik West PA is PHCP. [facility] 08:39 Triage completed. jl7 08:39 Arm band placed on right wrist. jl7 08:42 Client placed on continuous cardiac and pulse oximetry monitoring. NIBP monitoring jl7 applied. 08:47 Kristine Arnold RN is Primary Nurse. kc6 08:57 Patient has correct armband on for positive identification. Placed in gown. Bed in low kc6 position. Call light in reach. Side rails up X2. 09:06 Inserted saline lock: 20 gauge in left antecubital area, using aseptic technique. kc6 ,using aseptic technique. inserted by JENNIFER Ramirez Blood collected. 09:14 CT Head Brain wo Cont In Process Unspecified. EDMS 09:28 XRAY Chest (1 view) In Process Unspecified. EDMS 10:47 No provider procedures requiring assistance completed. IV discontinued, intact, kc6 bleeding controlled, No redness/swelling at site. Pressure dressing applied. Administered Medications: No medications were administered Outcome: 09:56 Discharge ordered by . rn 10:47 Discharged to home ambulatory. kc6 10:47 Condition: stable 10:47 Discharge instructions given to patient, Instructed on discharge instructions, follow up and referral plans. Demonstrated understanding of instructions, follow-up care. 10:48 Patient left the ED. aa5 Signatures: Dispatcher [employer] EDMS Henrik West PA PA jmm Nieto, Roman, MD MD rn Calderon, Audri RN RN aa5 Simona Cabrera RN RN jl7 Khushboo Ashford am2 Arnold, Kristine, RN RN kc6
--- NOTE | 2022-08-28 09:57 | EDPHYS ---
Physician Documentation [facility] Name: Kelsi Ballard Age: 72 yrs Sex: Female : 1950 Arrival Date: 08/28/2022 Time: 08:23 Bed 16 Private MD: ED Physician Roman Yanez HPI: 08/28 09:11 This 72 yrs old Female presents to ER via Ambulatory with complaints of High Blood rn Pressure, Headache, chest pain. 09:11 The patient has elevated blood pressure and discovered this at home. Onset: The rn symptoms/episode began/occurred at an unknown time. Modifying factors: The symptoms are aggravated by discontinuation of meds, The symptoms are alleviated by prescription meds. Associated signs and symptoms: Pertinent positives: chest pain, headache, Pertinent negatives: vomiting, weakness. Severity of symptoms: At its worst the blood pressure was moderate, in the emergency department the blood pressure is improved. The patient has experienced similar episodes in the past. The patient has not recently seen a physician. Pt reports high blood pressure, running in 150s, found out recently that she had not been taking her metoprolol for months. Reports headache, left sided chest pain, and generalized weakness. NO focal weakness or numbness. No vision changes. . Historical: - Allergies: 08:39 Hydrocodone-Acetaminophen; jl7 08:39 tramadol; jl7 - Home Meds: 08:39 aspirin 81 mg Oral chew once daily [Active]; venlafaxine Oral [Active]; lisinopril Oral jl7 once daily [Active]; Metoprolol [Active]; amlodipine oral [Active]; - PMHx: 08:39 Anxiety; Chronic pain; Hypertension; Depressive disorder; jl7 - Immunization history:: Client reports having NOT received the Covid vaccine. - Social history:: Smoking status: Patient denies any tobacco usage or history of. - Family history:: not pertinent. - Hospitalizations: : No recent hospitalization is reported. ROS: 09:11 Constitutional: Negative for fever, chills, and weight loss, Eyes: Negative for injury, rn pain, redness, and discharge, Neck: Negative for injury and swelling, Cardiovascular: + chest pain Respiratory: Negative for shortness of breath, cough, wheezing, and pleuritic chest pain, Abdomen/GI: Negative for abdominal pain, nausea, vomiting, diarrhea, and constipation, MS/Extremity: Negative for injury and deformity, Skin: Negative for injury, rash, and discoloration, Neuro: Negative for numbness, tingling, and seizure Exam: 09:11 Constitutional: This is a well developed, well nourished patient who is awake, alert, rn and in no acute distress. Head/Face: Normocephalic, atraumatic. Eyes: Pupils equal round and reactive to light, extra-ocular motions intact. Lids and lashes normal. Conjunctiva and sclera are non-icteric and not injected. Cornea within normal limits. Periorbital areas with no swelling, redness, or edema. Neck: Trachea midline, no thyromegaly or masses palpated, and no cervical lymphadenopathy. Supple, full range of motion without nuchal rigidity, or vertebral point tenderness. No Meningismus. Cardiovascular: Regular rate and rhythm. No pulse deficits. Respiratory: No increased work of breathing, no retractions or nasal flaring. Abdomen/GI: soft, non-tender Skin: Warm, dry MS/ Extremity: Pulses equal, no cyanosis. Neuro: Awake and alert, GCS 15, oriented to person, place, time, and situation. Cranial nerves II-XII grossly intact. Motor strength 5/5 in all extremities. Sensory grossly intact. Cerebellar exam normal. Normal gait. 09:11 Constitutional: The patient appears 12:34 ECG was reviewed by the Attending Physician. rn Vital Signs: 08:36 BP 149 / 87; Pulse 91; Resp 17 S; Temp 98.4(TE); Pulse Ox 96% on R/A; Weight 71.21 kg jl7 (R); Height 5 ft. 5 in. (165.10 cm) (R); Pain 5/10; 10:15 BP 146 / 85; Pulse 89; Resp 15; Pulse Ox 95% ; kc6 08:36 Body Mass Index 26.13 (71.21 kg, 165.10 cm) jl7 MDM: 08:25 Patient medically screened. rn 09:53 Differential diagnosis: hypertensive crisis, Malignant HTN, intracerebral hemorrhage, rn anxiety, stress reaction, missed medication doses. Data reviewed: vital signs, nurses notes, lab test result(s), EKG, radiologic studies, CT scan, plain films, and as a result, I will discharge patient. Independent interpretation of the following test(s) in the Emergency Department EKG: See my EKG interpretation above X-Ray: My interpretation is CXR neg for acute abnormality, neg for pneumothorax.. Care significantly affected by the following chronic conditions: Hypertension, anxiety. Counseling: I had a detailed discussion with the patient and/or guardian regarding: the historical points, exam findings, and any diagnostic results supporting the discharge/admit diagnosis, lab results, radiology results, the need for outpatient follow up, to return to the emergency department if symptoms worsen or persist or if there are any questions or concerns that arise at home. Special discussion: I discussed with the patient/guardian in detail that at this point there is no indication for admission to the hospital. It is understood, however, that if the symptoms persist or worsen the patient needs to return immediately for re-evaluation. Based on the history and exam findings, there is no indication for further emergent testing or inpatient evaluation. I discussed with the patient/guardian the need to see the housekeeper caregiver for further evaluation of the symptoms. I discussed with the patient/guardian the need to see the primary care provider for further evaluation of the symptoms. ED course: NO acute findings on imaging/blood/ECG. Will dc home with return precautions, already has cardiology f/u, states neg stress test 1 year ago and neg trop today. Recommend taking her metoprolol as prescribed.. 08/28 08:40 Order name: Basic Metabolic Panel; Complete Time: :08/28 08:40 Order name: CBC with Diff; Complete Time: :08/28 08:40 Order name: NT PRO-BNP; Complete Time: :08/28 08:40 Order name: PT-INR; Complete Time: :08/28 08:40 Order name: Troponin HS; Complete Time: :08/28 08:40 Order name: XRAY Chest (1 view); Complete Time: :52 08/28 08:40 Order name: EKG; Complete Time: 08:41 08/28 08:40 Order name: Cardiac monitoring; Complete Time: 08:49 08/28 08:40 Order name: EKG - Nurse/Tech; Complete Time: 09:08/28 08:40 Order name: IV Saline Lock; Complete Time: :08/28 08:40 Order name: Labs collected and sent; Complete Time: 09:06 rn 08/28 08:40 Order name: O2 Per Protocol; Complete Time: 08:49 rn 08/28 08:40 Order name: O2 Sat Monitoring; Complete Time: 08:49 rn 08/28 08:40 Order name: CT Head Brain wo Cont; Complete Time: 09:52 rn EC:34 Rate is 90 beats/min. Rhythm is regular. QRS [place] is Normal. [place] interval is normal. QRS rn interval is normal. QT interval is normal. No Q waves. T waves are Normal. No ST changes noted. Clinical impression: Normal ECG. Interpreted by me. Reviewed by me. Administered Medications: No medications were administered Disposition Summary: 08/28/22 09:56 Discharge Ordered Location: Home rn Problem: an ongoing problem rn Symptoms: have improved rn Condition: Stable rn Diagnosis - Essential (primary) hypertension rn - Chest pain, unspecified rn Followup: rn - With: Private Physician - When: As needed - Reason: Recheck today's complaints, Re-evaluation by your physician Discharge Instructions: - Discharge Summary Sheet rn - Nonspecific Chest Pain, Adult rn - Hypertension, Adult rn - Pain Without a Known Cause rn - Managing Your Hypertension rn Forms: - Medication Reconciliation Form rn - Thank You Letter rn - Antibiotic terrazzo journeyman - Prescription Opioid Use rn Signatures: Dispatcher [employer] EDMS Roman Yanez MD MD rn Leal, Jahala, RN RN jl7 Corrections: (The following items were deleted from the chart) 09: 09:11 Constitutional: The patient appears rn rn : 09:11 Constitutional: This is a well developed, well nourished patient who is awake, rn alert, and in no acute distress. rn : 09:11 Constitutional: This is a well developed, well nourished patient who is awake, rn alert, and in no acute distress. Head/Face: Normocephalic, atraumatic. Eyes: Pupils equal round and reactive to light, extra-ocular motions intact. Lids and lashes normal. Conjunctiva and sclera are non-icteric and not injected. Cornea within normal limits. Periorbital areas with no swelling, redness, or edema. Cardiovascular: Regular rate and rhythm. No pulse deficits. Respiratory: No increased work of breathing, no retractions or nasal flaring. Abdomen/GI: soft, non-tender Skin: Warm, dry MS/ Extremity: Pulses equal, no cyanosis. Neuro: Awake and alert, GCS 15, oriented to person, place, time, and situation. Cranial nerves II-XII grossly intact. Motor strength 5/5 in all extremities. Sensory grossly intact. Cerebellar exam normal. Normal gait. rn
[2022-08-28 10:54] VITALS: TEMP 98.4
[2022-08-28 10:55] VITALS: BP 146/85; O2SAT 95
--- NOTE | 2022-08-30 16:57 | EKG ---
Test Date: 2022-08-28 Test Time: 09:03:46 Computer Scientist: SIDNEY MEASUREMENT RESULTS: Intervals: Rate: 90 GA: 130 QRSD: 78 QT: 378 QTc: 462 Baxter: P: 38 GA: 130 QRS: -12 T: -2 INTERPRETIVE STATEMENTS: Normal sinus rhythm Moderate voltage criteria for LVH, may be normal variant Borderline ECG Compared to ECG 12/12/2020 08:57:54 Left ventricular hypertrophy now present Myocardial infarct finding no longer present Electronically Signed On 08-30-22 16:54:59 LEMON GROWER by George Hood
== END 2022-08-28 10:48 | disposition home or self-care (01) ==
LOC: ER 08:22
DX: R07.89 Other chest pain (principal); I10 Essential (primary) hypertension; Z79.82 Long term (current) use of aspirin; Z88.5 Allergy status to narcotic agent
CPT/HCPCS: 36415; 70450; 71045; 80048; 83880; 84484; 85025; 85610; 93005; 99283

== ENCOUNTER 2024-08-20 09:08 | Emergency (ER) | payer OTHER ==
--- OUTSIDE RECORDS SUMMARY | 2024-08-20 09:11 | XMS REPORT | Clinical Summary ---
Author Name Unknown Organization [facility] [place] Address [address] [place] [address] Care Team Providers Care Electronic Musical Instrument Repairer Name Role Phone Mishel Hayward Unavailable Khushboo Llamas RN Unavailable Kuldeep Crouch MD Primary Care Provider [phone] Laura Newsome RN Unavailable [phone] Mark Bhandari MD Unavailable [phone] Allergies Active Allergy Reactions Criticality Noted Date Comments Tramadol Other (See Comments) 02/27/2016 Makes her feel sick Medications * This document contains information received from the source organization and may not represent a complete record from that organization. lisinopril (PRINIVIL,ZESTR IL) 20 mg tablet Take 1 tablet (20 mg) by mouth every morning. Active amLODIPine (NORVASC) 10 mg tablet Take 1 tablet (10 mg) by mouth daily. 04/29/2021 Active metoprolol succinate (TOPROL XL) 50 mg 24 hr tablet Take 1 tablet (50 mg) by mouth daily. 04/29/2021 Active famotidine (PEPCID) 40 mg tablet Take 0.5 tablets (20 mg) by mouth daily as needed. Active ALPRAZolam (XANAX) 0.25 mg tablet Take 1 tablet (0.25 mg) by mouth as needed. 03/22/2024 Active venlafaxine (EFFEXOR) 75 mg tablet Take 1 tablet (75 mg) by mouth daily. 01/11/2022 Active acetaminophen-c odeine (TYLENOL #3) 300 mg-30 mg tablet Take 1 tablet by mouth as needed. 02/24/2024 Active Active Problems Patient Care Coordination No te Formatting of this note migh t be different from the original. 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 Date Type Department Care Team Description 08/13/2024 Telephone [facility] [address] [place] [address], [facility] Floor, [place] [address] Laura Newsome, BRIANDA Nurse Navigation (Plan for the day) 08/13/2024 Telephone [facility] [place] - Surgical Oncology [address] [place] [address], [address] [place] [address], [facility] [address] Laura Newsome, BRIANDA Nurse Navigation (Plan for the day) 04/20/2024 Orders Only Neuroradiology [address] [place] [id number] Elvira Stratton MD 04/20/2024 Orders Only [facility] [address] [place] [address], [address] [place] [address], [place] [address] Garland Martini PA Squamous cell carcinoma of tongue (Primary Dx) 04/19/2024 Multidisciplinary Visit [facility] [address] [place] [address], [address] [place] [address], [place] [address] Garland Martini PA 04/19/2024 Telephone [facility] [address] [place] [address], 10th Floor, [place] [address] Laura Newsome, BRIANDA Nurse Navigation([facility]) 04/17/2024 11:30 AM CDT - 04/17/2024 11:59 PM CDT Hospital Encounter Radiation Treatment Center [facility] Main [facility], 1st Floor [place] [address] Garland Martini PA Rosenthal, David, MD Squamous cell carcinoma of tongue Discharge Disposition: Home 04/17/2024 7:10 AM CDT Ancillary Procedure MD [place] [address] [facility] 2nd [place] [address] Garland Martini PA Squamous cell carcinoma of tongue 04/17/2024 Telephone [facility] [address] [place] [address], 10th Floor, [place] [address] Khushboo Llamas, BRIANDA Nurse Navigation 04/16/2024 10:30 AM CDT NPR [facility] PATIENT ACCESS Kuldeep Crouch MD 04/16/2024 10:18 AM CDT - 04/16/2024 11:59 PM CDT Hospital Encounter [facility], 10th Floor, [place] [address] Kuldeep Crouch MD Squamous cell carcinoma of tongue (Primary Dx) Discharge Disposition: Home 04/16/2024 Travel 04/12/2024 Telephone [facility] [address] [place] [address] Main dg, 10th Floor, [place] [address] Khushboo Llamas, BRIANDA Nurse Navigation 04/06/2024 Orders Only [facility] Main [facility], 10th Floor, [place] [address] Garland Martini PA Squamous cell carcinoma of tongue (Primary Dx) 03/29/2024 Lab Requisition [facility] Yanick Morfin MD Barrios, Roberto Jose, MD 03/29/2024 Telephone [facility] [address] [place] [address] Main dg, 10th Floor, [place] [address] Karishma Pham, RN Follow-up 03/27/2024 Orders Only [facility] - [facility] Main dg, 10th Floor, [place] [address] Garland Martini PA Squamous cell carcinoma of tongue (Primary Dx) 03/22/2024 Telephone [facility] Main dg, 10th Floor, [place] [address] Khushboo Llamas, BRIANDA 03/22/2024 Telephone [facility] Main [facility], 10th Floor, [place] [address] Khushboo Llamas, BRIANDA after 08/21/2023 Surgical History Surgery Date Site/Laterality Comments COLONOSCOPY BREAST LUMPECTOMY 1972 Medical History Medical History Date Comments Hypertension Functional visual loss Dependence on continuous positive airway pressur e ventilation Gastric reflux Renal stone Menopause Depressive disorder Anxiety Psoriasis 12/2023 Family History Medical History Relation Name Comments Colon cancer Brother 1 Rhys Head and neck cancer Brother 2 Jasbir Melanoma Brother 3 Mark Skin cancer Brother 3 Mark -Other cancer Brother 4 Brennon bladder Leukemia Brother 4 Brennon Breast cancer Sister 1 Giovanna Breast cancer Sister 2 Sofie Relation Name Status Comments Brother 1 Rhys Brother 2 Jasbir Brother 3 Mark Brother 4 Brennon Sister 1 Giovanna Sister 2 Sofie Social History Tobacco Use Types Packs/Day Years Used Date Smoking Tobacco: Never Smokeless Tobacco: Never Tobacco Cessation:Counseling Given: Not Answered Alcohol Use Standard Drinks/Week Comments Not Currently 0 (1 standard drink = 0.6 oz pur e alcohol) Comments Unknown Sex and Gender Information Value Date Recorded Sex Assigned at Female 03/21/2024 3:34 PM CDT Legal Sex Female 3:01 PM CDT Gender Identity Female 03/21/2024 3:34 PM CDT Sexual Orientation Straight 03/21/2024 3: 34 PM CDT Obstetrics History Last Filed Vital Signs Vital Sign Reading Time Taken Comments Blood Pressure 142/82 04/17/2024 12:04 PM CDT Pulse 94 04/17/2024 12:04 PM CDT Temperature 36.6 C (97.9 F) 04/17/2024 1 2:04 PM CDT Respiratory Rate 16 04/17/2024 12:0 4 PM CDT Oxygen Saturation 98% 04/17/2024 12: 04 PM CDT Inhaled Oxygen Concentration - - Weight 68.9 kg (151 lb 14.4 oz) 024 12:04 PM CDT Height 159 cm (5' 2.6") 04/16/2024 10:2 7 AM CDT Body Mass Index 27.25 04/16/2024 10:27 AM CDT Plan of Treatment Upcoming Encounters Date Type Department Care Team (Late st Contact Info) Description 08/20/2024 11:15 AM INFRASTRUCTURE DEVELOPER Appointment [facility] [address] [place] [address] Main [facility], 10th Floor, [place] [address] Kuldeep Crouch MD [facility] [place] [address] [email or web address] Health Maintenance Due Date Last Done Comments Pneumococcal Vaccine: 65+ Years (1 of - PCV) 015 COVID-19 Vaccine ( season) 2024 Influenza Vaccine (#1) 2024 Procedures Procedure Name Priority Date/Time Associated Diagnosis Comments CT CHEST W CONTRAST Routine 04/17/2024 8 :35 AM CDT Squamous cell carcinoma of tongue CT SOFT TISSUE NECK W CONTRAST Routine 04/17/2024 8:35 AM CDT Squamous cell carcinoma of tongue POC CREATININE Routine 04/17/2024 7:12 AM CDT PATHOLOGY OUTSIDE INTERPRETATION Routine 02/24/2024 after 08/21/2023 Results * CT Soft Tissue Neck with Contrast (04/17/2024 8:35 AM CDT) Anatomical Region Laterality Modality Neck Computed Tomogra phy 04/17/2024 8:44 AM CDT Impressions 04/17/2024 10:29 PM CDT 1. No evidence of residual tumor at the right oral tongue. 2. No cervical adenopathy. ACTIONABLE ITEMS/RECOMMENDATIONS*: None. *An Actionable Finding is a finding that may be unrelated to the original reason for imaging but potentially actionable, meaning further investigation may be necessary. The Actionable Findings Vigilance Unit (AFVU) assists medical providers with responding to additional radiologic findings that are unexpected and potentially actionable. I personally reviewed these image(s) along with the resident's/fellow's interpretations, certify that if a procedure was performed I was physically present, and agree with the final report. Narrative 04/17/2024 10:29 PM CDT FULL RESULT: Examination: CT SOFT TISSUE NECK W CONTRAST on 04/17/2024 8:35 AM. CLINICAL HISTORY: Recent excisional bx of right oral tongue SCC. Path with negative margins. INDICATION: Cancer staging or restaging COMPARISON: None. TECHNIQUE: CT neck with IV contrast was performed. FINDINGS: There is streak artifact limiting evaluation of the oral cavity. Primary Site: No evidence of residual lesions in the oral tongue, noting the previously described limitation. Lymph Nodes: No worrisome cervical adenopathy. Mildly prominent asymmetric 8 mm right lateral retropharyngeal node is favored to be reactive (image 191 of series 3). Distant Sites: Evaluation of the visualized portions of the brain, orbits, spine, and lung show no lesions suspicious for metastasis. Other Findings: Multiple hypoattenuating nodules in the thyroid, measuring less than 6 mm. Procedure Note Any Dyson MD - 04/17/2024 FULL RESULT: Examination: CT SOFT TISSUE NECK W CONTRAST on 04/17/2024 8:35 AM. CLINICAL HISTORY: Recent excisional bx of right oral tongue SCC. Path withnegative margins. INDICATION: Cancer staging or restaging COMPARISON: None. TECHNIQUE: CT neck with IV contrast was performed. FINDINGS: There is streak artifact limiting evaluation of the oral cavity. Primary Site: No evidence of residual lesions in the oral tongue, noting the previouslydescribed limitation. Lymph Nodes: No worrisome cervical adenopathy. Mildly prominent asymmetric 8 mm rightlateral retropharyngeal node is favored to be reactive (image 191 ofseries 3). Distant Sites: Evaluation of the visualized portions of the brain, orbits, spine, andlung show no lesions suspicious for metastasis. Other Findings: Multiple hypoattenuating nodules in the thyroid, measuring less than 6mm. IMPRESSION: 1. No evidence of residual tumor at the right oral tongue. 2. No cervical adenopathy. ACTIONABLE ITEMS/RECOMMENDATIONS*: None. *An Actionable Finding is a finding that may be unrelated to the originalreason for imaging but potentially actionable, meaning furtherinvestigation may be necessary. The Actionable Findings Vigilance Unit(AFVU) assists medical providers with responding to additional radiologicfindings that are unexpected and potentially actionable. I personally reviewed these image(s) along with the resident's/fellow'sinterpretations, certify that if a procedure was performed I wasphysically present, and agree with the final report. [facility] CT ORDERABLES Final Result * CT Chest with Contrast (04/17/2024 8:35 AM CDT) Anatomical Region Laterality Modality Chest Computed Tomogra phy 04/17/2024 8:45 AM CDT Impressions 04/17/2024 8:53 AM CDT Bilateral indeterminate small pulmonary nodules may represent sequela of infectious/inflammatory process or metastatic disease. Comparison to prior imaging could be helpful if available, otherwise short-term follow-up CT advised for further assessment. ACTIONABLE ITEMS/RECOMMENDATIONS*: See impression. *An Actionable Finding is a finding that may be unrelated to the original reason for imaging but potentially actionable, meaning further investigation may be necessary. The Actionable Findings Vigilance Unit (AFVU) assists medical providers with responding to additional radiologic findings that are unexpected and potentially actionable. Narrative 04/17/2024 8:53 AM CDT FULL RESULT: Examination: CT CHEST W CONTRAST on 04/17/2024 8:35 AM. Clinical History: Squamous cell carcinoma of tongue Indication: Cancer staging or restaging Comparison: None Technique: CT of the chest is performed with intravenous contrast Findings: Lungs/Airways/Pleura: There are bilateral nonspecific small pulmonary nodules measuring up to 4-5 mm. There are no pleural effusions. Neck/Mediastinum/Nodes/Heart: There is no mediastinal or hilar lymphadenopathy. The heart is normal in size. No pericardial effusion. Mild coronary artery calcification. Upper abdomen: Limited imaging through the upper abdomen shows normal adrenal glands. Moderate size hiatal hernia. Liver and left kidney cysts present. Although there are a few small hypodensities in the liver are too small to characterize by CT. There is a small hypervascular lesion on image 115, possibly representing a hemangioma or focal nodular hyperplasia. Nonobstructive 4 mm calculus present in the upper pole of the right kidney. Bones/Soft Tissues: Degenerative changes present in the thoracic spine. Procedure Note Rivka Rodriguez C.B., MD - 04/17/2024 FULL RESULT: Examination: CT CHEST W CONTRAST on 04/17/2024 8:35 AM. Clinical History: Squamous cell carcinoma of tongue Indication: Cancer staging or restaging Comparison: None Technique: CT of the chest is performed with intravenous contrast Findings: Lungs/Airways/Pleura: There are bilateral nonspecific small pulmonarynodules measuring up to 4-5 mm. There are no pleural effusions. Neck/Mediastinum/Nodes/Heart: There is no mediastinal or hilarlymphadenopathy. The heart is normal in size. No pericardial effusion.Mild coronary artery calcification. Upper abdomen: Limited imaging through the upper abdomen shows normaladrenal glands. Moderate size hiatal hernia. Liver and left kidney cystspresent. Although there are a few small hypodensities in the liver are toosmall to characterize by CT. There is a small hypervascular lesion onimage 115, possibly representing a hemangioma or focal nodularhyperplasia. Nonobstructive 4 mm calculus present in the upper pole of theright kidney. Bones/Soft Tissues: Degenerative changes present in the thoracic spine. IMPRESSION: Bilateral indeterminate small pulmonary nodules may represent sequela ofinfectious/inflammatory process or metastatic disease. Comparison to priorimaging could be helpful if available, otherwise short-term follow-up CTadvised for further assessment. ACTIONABLE ITEMS/RECOMMENDATIONS*: See impression. *An Actionable Finding is a finding that may be unrelated to the originalreason for imaging but potentially actionable, meaning furtherinvestigation may be necessary. The Actionable Findings Vigilance Unit(AFVU) assists medical providers with responding to additional radiologicfindings that are unexpected and potentially actionable. [facility] IM CT ORDERABLES Final Result * POC Creatinine (04/17/2024 7:12 AM CDT) POC Creatinine 0.7 0.6 - 1.3 mg/dL 04/17/2024 7:16 AM T NIOTAZE Comment:Medications, especia lly hydroxyurea or supplements, such as ascorbate, can interfere with test results causing a falsely and significantly higher result than expected. If a problem is suspected with a patient's result, a sample should be sent to the laboratory for confirmatory testing. POC eGFR 91 >=60 mL/min/1.7 3 sq. m 04/17/2024 7:16 AM T NIOTAZE Comment: The eGFRcr is calculated with the 2020 CKD-EPI creatinine equation using creatinine, patient's age, and sex for adults 18 years of age and older. Other factors, especially muscle mass, may affect accuracy and need to be considered. According to the Kidney Disease: Improving Global Outcomes (KDIGO) CKD Work Group 2012 Clinical Practice Guideline, chronic kidney disease (CKD) is defined as the abnormalities of kidney structure or function, present for more than 3 months, with implications for health. CKD should be classified by cause, GFR category, and albuminuria category. KDIGO guidelines provide the following GFR categories. Stage / Description / GFR mL/min/1.73 m2: G1* / Normal or high / >= 90 G2* / Mildly decreased / 60-89 G3a / Mildly to moderately decreased / 45-59 G3b / Moderately to severely decreased / 30-44 G4 / Severely decreased / 15-29 G5 / Kidney failure / <15 *In the absence of evidence of kidney damage, neither G1 nor G2 fulfill criteria for CKD. Blood 04/17/2024 7:12 AM CDT 04/17/2024 7:16 AM CDT [facility] - 04/17/2024 7:16 AM CDT Method description: The i-STAT is an analyzer used for in vitro quantification of various analytes in whole blood. The device uses a single disposable cartridge which contains microfabricated sensors, a calibration solution, fluidics system, and a waste chamber. Each test cartridge contains chemically sensitive biosensors on a silicon chip that are configured to perform specific tests. The microfabricated sensors measure analyte concentration by an electrochemical assay. [facility] POCT ORDERABLES - DEVICE Final Result ALEJANDRA [facility] [place] [facility] [address] [facility], [facility] [address] [place] [address] * Pathology Outside Interpretation (02/24/2024) Materials Received Accession#, Stained, Block, Unstained Collected Received A. [id number], 34 SS, 0 BLOCKS, 0 USS 02/24/2024 03/29/2024 04/02/2024 3:31 PM CDT [facility] Diagnosis Outside ([id number], 34 SS, 0 BLOCKS, 0 USS, collected on 02/24/2024): Tongue, anterior right lateral, excision(A1-3): INVASIVE SQUAMOUS CELL CARCINOMA - Moderately differentiated Tumor Features: Size: 0.4 cm in largest dimension Invasion: Present, depth 0.1 cm Perineural Invasion: Not Evaluable Lymphovascular Invasion: Suspicious for invasion Resection margins: Close < 1mm to invasive tumor - peripheral and deep (main specimen) Moderate to focally severe dysplasia at peripheral margins Additional margins: Anterior right lateral tongue, superior margin(B1):Anterio r right lateral tongue, inferior margin(C1): posterior right lateral tongue(E1-2): Squamous mucosa, negative for carcinoma. Mid right lateral tongue(D1-2): Verrucouid proliferation, without significant dysplasia Negative for invasive carcinoma EVELYN/JOSE 04/02/2024 3:31 PM CDT [facility] Biomarker Block(s) Tumor block: A2 04/02/2024 3:31 PM CDT [facility] Disclaimer "Some tests reported here may have been developed and performance characteristics determined by [facility] Pathology and Laboratory Medicine. These tests have not been specifically cleared or approved by the U.S. Food and Drug Administration. If applicable, controls were reviewed and showed appropriate reactivity." 04/02/2024 3:31 PM CDT [facility] Tissue 02/24/2024 03/29/2024 10: 20 AM CDT us Kedar Curtis MD LAB PATHOLOGY ORDERABLES Final Result [facility] [address] [place] [address], [place] after 08/21/2023 Insurance [employer] MEDICARE PPO [employer] MED[employer] PPO Care Teams Electronic Musical Instrument Repairer Relationship Specialty Start Date End Date HaywardMishel [address] [facility] [address] [place] [address] PCP - External Referring Otolaryngology 03/19/24 Kuldeep Crouch MD [address] [place] [id number] [email or web address] PCP - General Head and Neck Surgery 03/19/24 Khushboo Llamas, RN [facility] [place] [address] [email or web address] Intake Nurse Navigator Nursing 03/22/24 04/16/24 Laura Newsome, BRIANDA [address] [place] [id number] [email or web address] Treatment Nurse Navigator Nursing 04/17/24 Mark Bhandari MD [address] [place] [phone] [email or web address] Consulting Physician Radiation Oncology 04/17/24
[2024-08-20] MEDS ORDERED: IBUPROFEN 400 MG TAB ONE (09:26)
[2024-08-20] MEDS ORDERED: ACETAMINOPHEN 500 MG TAB ONE (09:26)
--- NOTE | 2024-08-20 10:18 | RAD REPORT ---
Exam:Forearm Left Clinical history: Left forearm pain Findings: No fracture is seen
--- NOTE | 2024-08-20 10:21 | RAD REPORT ---
Exam:Humerus Left CLINICAL HISTORY: Left arm pain FINDINGS: Avulsion fracture involves the lateral aspect of the humeral head. The fragment measures 3.8 cm. No dislocation
[2024-08-20] MEDS ORDERED: ONDANSETRON 4 MG (ODT) TAB ONE (10:25)
--- NOTE | 2024-08-20 10:25 | ER ---
Nurse's Notes [facility] Name: Kelsi Ballard Age: 74 yrs Sex: Female : 1950 Arrival Date: 08/20/2024 Time: 09:08 Bed 6 Private MD: Diagnosis: Fracture of upper end of humerus Presentation: 08/20 09:23 Chief complaint: Patient states: she fell prior to arrival, injuring her left arm. ap3 patient complains of pain 6/10 to the left arm, of the left shoulder radiating down to her left fingers. Coronavirus screen: At this time, the client does not indicate any symptoms associated with coronavirus-19. Ebola Screen: No symptoms or risks identified at this time. Initial Sepsis Screen: Does the patient meet any 2 criteria? HR > 90 bpm. Does the patient have a suspected source of infection? No. Patient's initial sepsis screen is negative. Risk Assessment: Do you want to hurt yourself or someone else? Patient reports no desire to harm self or others. Onset of symptoms was August 20, 2024. 09:23 Method Of Arrival: Ambulatory ap3 09:23 Acuity: YARA 4 ap3 09:26 Mechanism of Injury: Fall from standing position. ap3 Triage Assessment: 09:25 General: Appears uncomfortable, Behavior is calm, cooperative, appropriate for age. ap3 Pain: Complains of pain in left arm Pain currently is 6 out of 10 on a pain scale. at worst was 9 out of 10 on a pain scale. Pain began suddenly. Neuro: Level of Consciousness is awake, alert, obeys commands, Oriented to person, place, time, situation, Appropriate for age. Cardiovascular: Patient's skin is warm and dry. Respiratory: Airway is patent Respiratory effort is even, unlabored, Respiratory pattern is regular, symmetrical. Musculoskeletal: Reports pain in left arm. Injury Description: fall. Historical: - Allergies: 09:24 tramadol; ap3 - PMHx: 09:24 Anxiety; Chronic pain; depressive disorder; Hypertension; ap3 - Immunization history:: Client reports having NOT received the Covid vaccine. Last tetanus immunization: unknown, Flu vaccine is not up to date. - Infectious Disease History:: Denies. - Family history:: not pertinent. - Social history:: Smoking status: Patient denies any tobacco usage or history of. - Hospitalizations: : No recent hospitalization is reported. Screenin:26 [facility] ED Fall Risk Assessment (Adult) History of falling in the last 3 months, ap3 including since admission Yes- single mechanical fall (1 pt) Confusion or Disorientation No (0 pts) Intoxicated or Sedated No (0 pts) Impaired Gait No (0 pts) Mobility Assist Device Used No (0 pt) Altered Elimination No (0 pt) Score/Fall Risk Level 0 - 2 = Low Risk Oriented to surroundings, Maintained a safe environment, Educated pt \T\ family on fall prevention, incl call for assistance when getting out of bed, Assessed \T\ reinforced patient's understanding of fall precautions, Hourly rounding (assess needs \T\ fall precautionary measures) done, Used ambulatory aids as needed (educated on \T\ assisted with), Used gait belt as appropriate. Abuse screen: Denies threats or abuse. Nutritional screening: No deficits noted. Tuberculosis screening: No symptoms or risk factors identified. Assessment: 10:39 Reassessment: Patient is alert, oriented x 3, equal unlabored respirations, skin ap3 warm/dry/pink. General: Appears comfortable, Behavior is calm, cooperative, appropriate for age. Vital Signs: 09:23 BP 148 / 86; Pulse 93; Resp 17; Temp 98.1(TE); Pulse Ox 98% on R/A; Weight 70.31 kg; ap3 Height 5 ft. 5 in. ; Pain 6/10; 10:20 BP 150 / 84; Pulse 93; Resp 16 S; Pulse Ox 95% on R/A; kc6 09:23 Body Mass Index 25.79 (70.31 kg, 165.1 cm) ap3 09:23 Pain Scale: Adult ap3 ED Course: 09:12 Patient arrived in ED. sj2 09:12 Roman Yanez MD is Attending Physician. rn 09:23 Khushboo Chaidez RN is Primary Nurse. ap3 09:24 Triage completed. ap3 09:27 Arm band placed on right wrist. ap3 10:04 XRAY Humerus LEFT In Process Unspecified. EDMS 10:04 XRAY Forearm LEFT In Process Unspecified. EDMS 10:39 No provider procedures requiring assistance completed. Patient did not have IV access ap3 during this emergency room visit. 10:40 Patient has correct armband on for positive identification. Provided Education on: ap3 discharge instructions. Administered Medications: : Drug: Ibuprofen PO 800 mg PO once Route: PO; kc6 10:20 Follow up: Response: No adverse reaction 6 09:28 Drug: Acetaminophen PO 500 mg PO once Route: PO; kc6 10:20 Follow up: Response: No adverse reaction kc6 10:39 Drug: Ondansetron Oral Disintegrating Tablet Oral Disintegrating Tablet 4 mg PO once ap3 Route: PO; 10:39 Follow up: Response: Medication administered at discharge. ap3 Medication: : VIS not applicable for this client. ap3 Outcome: 10:24 Discharge ordered by . rn 10:39 Discharged to home ambulatory, ap3 10:39 Condition: good 10:39 Discharge instructions given to patient, Instructed on discharge instructions, follow up and referral plans. medication usage, Demonstrated understanding of instructions, follow-up care, medications, Prescriptions given X 2, 10:40 Patient left the ED. ap3 Signatures: Dispatcher [employer] EDMS Roman Yanez MD MD rn Prokisch, Amanda, RN RN ap3 Kristine Arnold RN RN kc6 Bob Avina sj2 Corrections: (The following items were deleted from the chart) :25 09:24 Allergies: Hydrocodone-Acetaminophen; ap3 ap3
--- NOTE | 2024-08-20 10:25 | EDPHYS ---
Physician Documentation [facility] Name: Kelsi Ballard Age: 74 yrs Sex: Female : 1950 Arrival Date: 08/20/2024 Time: 09:08 Bed 6 Private MD: ED Physician Roman Yanez HPI: 08/20 09:20 This 74 yrs old Female presents to ER via Unassigned with complaints of Arm Injury. rn 09:20 The patient or guardian complains of decreased range of motion, injury, pain. The rn complaints affect the left humerus and left forearm. Onset: The symptoms/episode began/occurred just prior to arrival. Modifying factors: The symptoms are alleviated by remaining still, the symptoms are aggravated by movement, bending arm. Severity of symptoms: At their worst the symptoms were moderate, in the emergency department the symptoms are unchanged. The patient has experienced a previous episode. Patient reports slip and fall this morning just prior to arrival. Fell with left arm tucked in and reports pain to left proximal humerus. Also reports pain to proximal left forearm. No pain in wrist or hand. No pain in elbow. Has broken other arm before. Drove herself.. Historical: - Allergies: 09:24 tramadol; ap3 - PMHx: 09:24 Anxiety; Chronic pain; depressive disorder; Hypertension; ap3 - Immunization history:: Client reports having NOT received the Covid vaccine. Last tetanus immunization: unknown, Flu vaccine is not up to date. - Infectious Disease History:: Denies. - Family history:: not pertinent. - Social history:: Smoking status: Patient denies any tobacco usage or history of. - Hospitalizations: : No recent hospitalization is reported. ROS: 09:20 Neck: Negative for injury, pain, and swelling, Cardiovascular: Negative for chest pain, rn palpitations, and edema, Back: Negative for injury and pain, MS/Extremity: Positive for left arm injury and pain Skin: Negative for injury, rash, and discoloration, Neuro: Negative for weakness or numbness Exam: 09:20 Constitutional: This is a well developed, well nourished patient who is awake, alert, rn and in no acute distress. Patient ambulatory to room without difficulty or assistance MS/ Extremity: Pulses equal, no cyanosis. Neurovascular intact. Tenderness proximal left humerus without open wounds or gross deformity. Mild tenderness left dorsal/proximal forearm. No open wounds. Patient holding left arm in passive flexion. Vital Signs: 09:23 BP 148 / 86; Pulse 93; Resp 17; Temp 98.1(TE); Pulse Ox 98% on R/A; Weight 70.31 kg; ap3 Height 5 ft. 5 in. ; Pain 6/10; 10:20 BP 150 / 84; Pulse 93; Resp 16 S; Pulse Ox 95% on R/A; kc6 09:23 Body Mass Index 25.79 (70.31 kg, 165.1 cm) ap3 09:23 Pain Scale: Adult ap3 MDM: 09:12 Medical Screening Exam initiated rn 10:24 Differential diagnosis: closed fracture. Data reviewed: vital signs, nurses notes, rn radiologic studies, plain films, and as a result, I will discharge patient. Counseling: I had a detailed discussion with the patient and/or guardian regarding the historical points, exam findings, and any diagnostic results supporting the discharge/admit diagnosis, radiology results, the need for outpatient follow up, to return to the emergency department if symptoms worsen or persist or if there are any questions or concerns that arise at home. Special discussion: I discussed with the patient/guardian in detail that at this point there is no indication for admission to the hospital. It is understood, however, that if the symptoms persist or worsen the patient needs to return immediately for re-evaluation. Based on the history and exam findings, there is no indication for further emergent testing or inpatient evaluation. I discussed with the patient/guardian the need to see the orthopedic surgeon for further evaluation of the symptoms. 08/20 09:19 Order name: XRAY Humerus LEFT; Complete Time: 10: rn 08/20 09:19 Order name: XRAY Forearm LEFT; Complete Time: 10: rn 08/20 09:19 Order name: Sling; Complete Time: 10:39 rn Administered Medications: 09:28 Drug: Ibuprofen PO 800 mg PO once Route: PO; kc6 10:20 Follow up: Response: No adverse reaction kc6 09:28 Drug: Acetaminophen PO 500 mg PO once Route: PO; kc6 10:20 Follow up: Response: No adverse reaction kc6 10:39 Drug: Ondansetron Oral Disintegrating Tablet Oral Disintegrating Tablet 4 mg PO once ap3 Route: PO; 10:39 Follow up: Response: Medication administered at discharge. ap3 Disposition Summary: 08/20/24 10:24 Discharge Ordered Notes: Location: Home rn Problem: new rn Symptoms: have improved rn Condition: Stable rn Diagnosis - Fracture of upper end of humerus rn Followup: rn - With: Private Physician - When: As needed - Reason: Recheck today's complaints, Re-evaluation by your physician Discharge Instructions: - Discharge Summary Sheet rn - Humerus Fracture Treated With Immobilization rn - Humerus Fracture strategy intern Forms: - Work release form bd - Medication Reconciliation Form rn - Antibiotic nurse charge rn - Prescription Opioid Use rn - Patient Portal Instructions rn - Leadership Thank You Letter rn Prescriptions: - acetaminophen-codeine 300-30 mg Oral tablet - take 1 tablet ORAL route every 8 hours As needed; 12 tablet; Refills: 0, rn Product Selection Permitted - ondansetron 4 mg Oral Tablet,disintegrating - take 1 tablet ORAL route every 8 hours As needed; 10 tablet; Refills: 0, rn Product Selection Permitted Signatures: Dispatcher [employer] EDRoman Lechuga MD MD rn Prokisch, Amanda RN RN ap3 Kristine Arnold RN RN kc6 Corrections: (The following items were deleted from the chart) 09: 09:24 Allergies: Hydrocodone-Acetaminophen; ap3 ap3
[2024-08-21 16:42] VITALS: BP 150/84; TEMP 98.1; O2SAT 95
== END 2024-08-20 10:40 | disposition home or self-care (01) ==
LOC: ER 09:08
DX: S42.202A Unspecified fracture of upper end of left humerus, initial encounter for closed fracture (principal); W01.0XXA Fall on same level from slipping, tripping and stumbling without subsequent striking against object, initial encounter
CPT/HCPCS: 73090; 73060; 99283; Q0162